=== PATIENT | male | born 1940 | race Caucasian/White ===

== ENCOUNTER → 2017-03-01 | Outpatient (CLI) | payer OTHER ==
[2017-03-01 12:27] LABS: ALT/SGPT 29 U/L (12-78); AST/SGOT 13 U/L (15-37); BLOOD UREA NITROGEN 14 mg/dl (7-18); BUN/CREATININE RATIO 15.5 (10-20); CALCIUM 9.1 mg/dl (8.5-10.1); CARBON DIOXIDE 29 mmol/L (21-32); CHLORIDE 103 mmol/L (98-107); CHOLESTEROL 117 mg/dl (0-200); CREATININE 0.91 mg/dl (0.60-1.40); GLUCOSE 126 mg/dl (70-99); POTASSIUM 4.3 mmol/L (3.5-5.1); SODIUM 138 mmol/L (136-145); TRIGLYCERIDES 95 mg/dl (0-150); VERY LOW DENSITY LIPOPROT CALC 19 mg/dl
[2017-03-01 12:31] LABS: ALB/GLOB RATIO 0.9 (0.9-2); ALKALINE PHOSPHATASE 61 U/L (45-117); CHOLESTEROL/HDL RATIO 3.2; HDL CHOLESTEROL 37 mg/dl; LDL CHOLESTEROL CALCULATED 61 mg/dl
[2017-03-01 13:04] LABS: ESTIMATED AVERAGE GLUCOSE 177 mg/dl; HA1C FLAG Normal (Normal)
== END | disposition home or self-care (01) ==
LOC: C.LABPBG 07:36
PROVIDERS: ATTEND Neuromusculoskeletal Medicine & OMM
DX: Z00.00 Encounter for general adult medical examination without abnormal findings (principal); E11.9 Type 2 diabetes mellitus without complications; Z12.5 Encounter for screening for malignant neoplasm of prostate

== ENCOUNTER → 2017-04-02 | Outpatient (CLI) | payer OTHER | END | disposition home or self-care (01) | LOC: C.LABSPEC 09:21 | PROVIDERS: ATTEND Neuromusculoskeletal Medicine & OMM | DX: R19.7 Diarrhea, unspecified (principal) ==

== ENCOUNTER → 2017-06-28 | Outpatient (CLI) | payer OTHER ==
[2017-06-28 11:56] LABS: BASO % 0.7 %; BASO ABS # 0.05 K/uL (0-0.2); COMPLETE YES; EOS % 7.3 %; IG% 0.1 %; LYMPH % 22.9 %; LYMPH ABS # 1.53 K/uL (1.2-3.4); MEAN CELL VOLUME 91.6 fL (80-100); MEAN CORPUSCULAR HEMOGLOBIN 31.7 pg (25-34); MEAN CORPUSCULAR HGB CONC 34.6 g/dl (32-36); MEAN PLATELET VOLUME 10.1 fL (7.4-10.4); MONO % 8.8 %; NEUT % 60.2 %; PLATELET COUNT 240 K/uL (130-400); RED BLOOD COUNT 4.04 M/uL (4.7-6.1); WHITE BLOOD COUNT 6.68 K/uL (4.8-10.8)
[2017-06-28 12:23] LABS: ALT/SGPT 25 U/L (12-78); AST/SGOT 19 U/L (15-37); BLOOD UREA NITROGEN 13 mg/dl (7-18); BUN/CREATININE RATIO 18.5 (10-20); CARBON DIOXIDE 29 mmol/L (21-32); CHLORIDE 96 mmol/L (98-107); GLUCOSE 104 mg/dl (70-99); POTASSIUM 3.6 mmol/L (3.5-5.1); SODIUM 133 mmol/L (136-145)
[2017-06-28 12:26] LABS: ALB/GLOB RATIO 1.2 (0.9-2); ALKALINE PHOSPHATASE 56 U/L (45-117); ESTIMATED AVERAGE GLUCOSE 140 mg/dl; HA1C FLAG Normal (Normal)
== END | disposition home or self-care (01) ==
LOC: C.LABPBG 08:58
PROVIDERS: ATTEND Family Medicine
DX: I65.23 Occlusion and stenosis of bilateral carotid arteries (principal); D64.9 Anemia, unspecified; E11.9 Type 2 diabetes mellitus without complications; Z98.890 Other specified postprocedural states

== ENCOUNTER → 2017-09-17 | Outpatient (CLI) | payer OTHER ==
[2017-09-17 14:58] LABS: BLOOD UREA NITROGEN 14 mg/dl (7-18); CARBON DIOXIDE 29 mmol/L (21-32); GLUCOSE 113 mg/dl (70-99); POTASSIUM 3.7 mmol/L (3.5-5.1); SODIUM 129 mmol/L (136-145)
[2017-09-17 15:03] LABS: CHOLESTEROL 102 mg/dl (0-200); LDL CHOLESTEROL CALCULATED 43 mg/dl
== END | disposition home or self-care (01) ==
LOC: C.LABPBG 09:05
PROVIDERS: ATTEND Physician Assistant
DX: Z00.00 Encounter for general adult medical examination without abnormal findings (principal); I10 Essential (primary) hypertension; K52.9 Noninfective gastroenteritis and colitis, unspecified; Z86.73 Personal history of transient ischemic attack (TIA), and cerebral infarction without residual deficits

== ENCOUNTER → 2017-09-27 | Day surgery (SDC) | payer OTHER ==
[2017-09-26 09:04] VITALS: Ht 167.6 cm; Wt 74.5 kg
[~2017-09-27] VITALS: Ht 167.6 cm; Wt 74.5 kg
[~2017-09-27] MED LIST: AMLO-114 PO; ASPCH81X PO; ATOR-24 PO; CLOP1TAB15 PO; HYDR12.55 PO; LIDOCAINE HCL 2% 2 ML VIAL (20MG/ML) ONE; METF1TAB53 PO; MULT1CHW18 PO; MULT60CA PO; PROPOFOL IV EMULSION 10 MG/ML 20 ML VIAL IV ONE; SODIUM CHLORIDE 0.9% 500ML 500 ML IV ONE; [UNRECOGNIZED DRUG - CODE] PO
--- NOTE | 2017-09-27 12:04 | Endo History and Physical ---
History & Physical Date of Service: Sep 27, 2017. Chief Complaint: CHRONIC DIARRHEA Referring Physician: DR. LAST History of Present Illness 77 yo CM who presents for colonoscopy secondary to chronic diarrhea. Past Surgical History Hx Cardiac Surgery: Yes (LEFT CAROTID ENDARTERECTOMY) Hx Internal Defibrillator: No Hx Pacemaker: No Hx Abdominal Surgery: Yes (UMBILICAL HERNIA) Hx of Implantable Prosthesis: No Hx Post-Op Nausea and Vomiting: No Hx Cancer Surgery: No Hx Thoracic Surgery: No Hx Orthopedic: No Hx Urinary Tract Surgery: No Family History None Social History Smoking Status: Former Smoker Hx Substance Use: No Hx Alcohol Use: Yes (OCCASIONALLY) Allergies Coded Allergies: NO KNOWN DRUG ALLERGIES (Verified Allergy, Unknown, ., 09/26/17) Current Medications Reported Home Medications Medications Dose Route/Sig Max Daily Dose Days Date Category Norvasc (Amlodipine Besylate) 10 Mg Tab 10 Mg PO QAM 09/26/17 Reported Biotin Gummies (Biotin) 1,000 Mcg Chw 1 Dose PO QAM 09/26/17 Reported Preservision Areds 2 (Multiple Vitamins W/ Minerals) 1 Cap Cap 1 Cap PO QAM 09/26/17 Reported Multivitamin Gummies Adul (Multiple Vitamins W/ Minerals) 1 Chw Chw 1 Dose PO QAM 09/26/17 Reported Aspirin Chewable (Aspirin) 81 Mg Chew 81 Mg PO QPM 09/26/17 Reported Hydrochlorothiazide 12.5 Mg Tab 1 Tab PO QAM 09/26/17 Reported Plavix (Clopidogrel Bisulfate) 75 Mg Tab 75 Mg PO QAM 09/26/17 Reported Glucophage Ext Rel (Metformin Hcl) 1,000 Mg Tab 1,000 Mg PO BID 09/26/17 Reported Lipitor (Atorvastatin Calcium) 40 Mg Tab 40 Mg PO QPM 09/26/17 Reported Vital Signs Weight (Kilograms): 74.55 Height (Feet): 5 Height (Inches): 6 Date Time Temp Pulse Resp B/P (MAP) Pulse Ox O2 Delivery O2 Flow Rate FiO2 09/27/17 11:51 36.6 63 16 151/78 (102) 94 Room Air Physical Exam General Appearance: WD/WN, no apparent distress Respiratory/Chest: Auscultation: breath sounds normal Cardiovascular: Heart Auscultation: RRR Abdomen: Bowel Sounds: normal Inspection & Palpation: soft, non-distended, no tenderness, guarding & rebound Assessment and Plan Assessment: 77 yo CM who presents for colonoscopy secondary to chronic diarrhea. Plan: Proceed with colonoscopy.
--- NOTE | 2017-09-27 13:46 | GI REPORT ---
Procedure Date: 09/27/2017 1:15 PM Procedure: Colonoscopy Indications: Chronic diarrhea Medicines: Monitored Anesthesia Care Complications: No immediate complications. Estimated Blood Loss: Estimated blood loss: none. Procedure: Pre-Anesthesia Assessment: - Prior to the procedure, a History and Physical was performed, and patient medications and allergies were reviewed. The patient's tolerance of previous anesthesia was also reviewed. The risks and benefits of the procedure and the sedation options and risks were discussed with the patient. All questions were answered, and informed consent was obtained. Prior Anticoagulants: The patient last took aspirin 1 day prior to the procedure and last took Plavix (clopidogrel) on the day of the procedure. ASA Grade Assessment: III - A patient with severe systemic disease. After reviewing the risks and benefits, the patient was deemed in satisfactory condition to undergo the procedure. After I obtained informed consent, the scope was passed under direct vision. Throughout the procedure, the patient's blood pressure, pulse, and oxygen saturations were monitored continuously. The scope was introduced through the anus and advanced to the terminal ileum. The colonoscopy was performed without difficulty. The patient tolerated the procedure well. The quality of the bowel preparation was good. The terminal ileum, ileocecal valve, appendiceal orifice, and rectum were photographed. Findings: Multiple small-mouthed diverticula were found in the sigmoid colon. Non-bleeding internal hemorrhoids were found during retroflexion. The hemorrhoids were small. Several random biopsies were obtained with cold forceps for evaluation of microscopic colitis in the entire colon. Fluid aspiration for stool studies was performed in the entire colon. Impression: - Diverticulosis in the sigmoid colon. - Non-bleeding internal hemorrhoids. - Several random biopsies were obtained in the entire colon. - Fluid aspiration was performed. Recommendation: - Resume previous diet. - Continue present medications. - Repeat colonoscopy for surveillance based on pathology results. - Return to primary care physician as previously scheduled. Nirav Newman DO 09/27/2017 1:46:23 PM This report has been signed electronically. Note Initiated On: 09/27/2017 1:15 PM I attest to the content of the Intraoperative Record and orders documented therein, exceptions below
--- NOTE | 2017-09-27 13:52 | Discharge Instructions ---
Endoscopy Patient Instructions Date / Procedure(s) Performed Sep 27, 2017. Colonoscopy Allergy Information Coded Allergies: NO KNOWN DRUG ALLERGIES (Verified Allergy, Unknown, ., 09/26/17) Discharge Date / Findings Sep 27, 2017. Diverticulosis Internal hemorrhoids Random colon biopsies Stool aspirate collected Medication Instructions Stopped Medication(s): ASPIRIN 09/26/17 PLAVIX 09/27/17 OK to resume all medications today as prescribed Reported Home Medications Medications Dose Route/Sig Max Daily Dose Days Date Category Norvasc (Amlodipine Besylate) 10 Mg Tab 10 Mg PO QAM 09/26/17 Reported Biotin Gummies (Biotin) 1,000 Mcg Chw 1 Dose PO QAM 09/26/17 Reported Preservision Areds 2 (Multiple Vitamins W/ Minerals) 1 Cap Cap 1 Cap PO QAM 09/26/17 Reported Multivitamin Gummies Adul (Multiple Vitamins W/ Minerals) 1 Chw Chw 1 Dose PO QAM 09/26/17 Reported Aspirin Chewable (Aspirin) 81 Mg Chew 81 Mg PO QPM 09/26/17 Reported Hydrochlorothiazide 12.5 Mg Tab 1 Tab PO QAM 09/26/17 Reported Plavix (Clopidogrel Bisulfate) 75 Mg Tab 75 Mg PO QAM 09/26/17 Reported Glucophage Ext Rel (Metformin Hcl) 1,000 Mg Tab 1,000 Mg PO BID 09/26/17 Reported Lipitor (Atorvastatin Calcium) 40 Mg Tab 40 Mg PO QPM 09/26/17 Reported Provider Instructions Activity Restrictions - No exercising or heavy lifting for 24 hours. - Do not drink alcohol the day of the procedure. - Do not drive a car or operate machinery until the day after the procedure. - Do not make any important decisions or sign important papers in 24 hours after the procedure. Following Day: - Return to full activity which may include returning to work/school. Diet Start your diet with liquids and light foods (jello, soup, juice, toast). Then eat your usual diet if not nauseated. Treatment For Common After Affects For mild abdominal pain, bloating, or excessive gas: - Rest - Eat lightly - Lie on right side Follow-Up Information Follow-up with DR. LAST as scheduled Anesthesia Information What You Should Know You have had a procedure that required some medicine to reduce anxiety and discomfort. This treatment is called moderate sedation. After receiving the treatment, you may be sleepy, but you will be able to breathe on your own. The effects of the treatment may last for several hours. Follow these instructions along with Activity/Diet recommendations noted above: * Do NOT do anything where dizziness or clumsiness would be dangerous. * Rest quietly at home today, then you can be up and about tomorrow. * Have a responsible person stay with you the rest of today. * You may have had an I.V. today. If so, you may take the dressing off later today. Recommendations Call your doctor if: * Trouble breathing * Continuous vomiting for more than 24 hours * Temperature above 101 degrees * Severe abdominal pain or bloating * Pain not relieved by pain medicine ordered * There is increased drainage or redness from any incision * A large amount of rectal bleeding greater than 2-3 tablespoons. (If you had a polyp/s removed or have hemorrhoids, a small amount of blood - from the rectum is to be expected.) * You have any unanswered questions or concerns. IN THE EVENT OF A SERIOUS EMERGENCY, GO TO THE NEAREST EMERGENCY ROOM Your discharge instructions were prepared by provider Nirav Newman. Patient Instructions Signature Page Dimitri Goss Patient (or Guardian) Signature/Date: I have read and understand the instructions given to me by my caregivers. Caregiver/RN/Doctor Signature/Date: The above-named patient and/or guardian has received patient instructions on this date. + Original Patient Signature Page (only) stays with chart. Please make copy for patient.
[2017-09-27 14:10] VITALS: BP 164/79; PULSE 71; O2SAT 99
--- NOTE | 2017-09-27 14:28 | Anesthesiology Progress Note ---
Anesthesia Post Op Note Date & Time Sep 27, 2017 at 14:28 Vital Signs Pain Intensity: 0 Vital Signs Past 12 Hours Date Time Temp Pulse Resp B/P (MAP) Pulse Ox O2 Delivery O2 Flow Rate FiO2 09/27/17 14:10 71 16 164/79 (107) 99 Room Air 09/27/17 13:55 62 16 146/83 (104) 98 Room Air 09/27/17 13:40 62 16 109/61 (77) 97 Room Air 09/27/17 11:51 36.6 63 16 151/78 (102) 94 Room Air Notes Mental Status: alert / awake / arousable, participated in evaluation Pt Amnestic to Procedure: Yes Nausea / Vomiting: adequately controlled Pain: adequately controlled Airway Patency, RR, SpO2: stable & adequate BP & HR: stable & adequate Hydration State: stable & adequate Anesthetic Complications: no major complications apparent
== END | disposition home or self-care (01) ==
LOC: C.GI 11:19
PROVIDERS: ATTEND Internal Medicine
DX: K52.9 Noninfective gastroenteritis and colitis, unspecified (principal); K57.30 Diverticulosis of large intestine without perforation or abscess without bleeding; K64.8 Other hemorrhoids; I10 Essential (primary) hypertension; Z86.73 Personal history of transient ischemic attack (TIA), and cerebral infarction without residual deficits; E11.9 Type 2 diabetes mellitus without complications; M19.90 Unspecified osteoarthritis, unspecified site; Z98.890 Other specified postprocedural states; Z87.891 Personal history of nicotine dependence; Z79.82 Long term (current) use of aspirin; Z79.02 Long term (current) use of antithrombotics/antiplatelets; Z79.899 Other long term (current) drug therapy; Z98.41 Cataract extraction status, right eye; Z98.42 Cataract extraction status, left eye

== ENCOUNTER → 2017-10-04 | Outpatient (CLI) | payer OTHER ==
[~2017-10-04] MED LIST changes: -LIDOCAINE HCL 2% 2 ML VIAL (20MG/ML) ONE; -PROPOFOL IV EMULSION 10 MG/ML 20 ML VIAL IV ONE; -SODIUM CHLORIDE 0.9% 500ML 500 ML IV ONE
[2017-10-04 17:13] LABS: BLOOD UREA NITROGEN 12 mg/dl (7-18); CALCIUM 9.1 mg/dl (8.5-10.1); CARBON DIOXIDE 31 mmol/L (21-32); CREATININE 0.82 mg/dl (0.60-1.40); GLUCOSE 100 mg/dl (70-99); POTASSIUM 3.3 mmol/L (3.5-5.1); SODIUM 125 mmol/L (136-145)
== END | disposition home or self-care (01) ==
LOC: C.LABPBG 11:10
PROVIDERS: ATTEND Physician Assistant
DX: E87.1 Hypo-osmolality and hyponatremia (principal)

== ENCOUNTER → 2017-10-09 | Outpatient (CLI) | payer OTHER ==
[2017-10-09 17:43] LABS: OSMOLALITY,URINE 571 mOms/kg (500-800)
[2017-10-09 17:46] LABS: SODIUM RANDOM URINE 87 mEq/L
[2017-10-09 17:48] LABS: BLOOD UREA NITROGEN 8 mg/dl (7-18); CALCIUM 9.5 mg/dl (8.5-10.1); CARBON DIOXIDE 28 mmol/L (21-32); CREATININE 0.75 mg/dl (0.60-1.40); GLUCOSE 89 mg/dl (70-99); SODIUM 126 mmol/L (136-145)
[2017-10-09 17:58] LABS: PHOSPHORUS 3.2 mg/dl (2.5-4.9)
== END | disposition home or self-care (01) ==
LOC: C.LABPBG 12:21
PROVIDERS: ATTEND Internal Medicine Nephrology
DX: E87.1 Hypo-osmolality and hyponatremia (principal); I10 Essential (primary) hypertension

== ENCOUNTER → 2017-10-14 | Outpatient (CLI) | payer OTHER ==
[2017-10-14 13:59] LABS: ALBUMIN 3.7 gm/dl (3.4-5.0); BLOOD UREA NITROGEN 13 mg/dl (7-18); CALCIUM 9.1 mg/dl (8.5-10.1); CARBON DIOXIDE 29 mmol/L (21-32); CREATININE 0.84 mg/dl (0.60-1.40); GLUCOSE 201 mg/dl (70-99); PHOSPHORUS 3.3 mg/dl (2.5-4.9); POTASSIUM 4.1 mmol/L (3.5-5.1); SODIUM 133 mmol/L (136-145)
== END | disposition home or self-care (01) ==
LOC: C.LABPBG 09:57
PROVIDERS: ATTEND Internal Medicine Nephrology
DX: E87.1 Hypo-osmolality and hyponatremia (principal); E87.6 Hypokalemia

== ENCOUNTER 2018-03-16 07:38 | Emergency (ER) | payer OTHER ==
[~2018-03-16] VITALS: Ht 167.6 cm; Wt 74.6 kg
[~2018-03-16 07:38] MED LIST changes: -AMLO-114 PO; +AMLO10TA3 PO
[2018-03-16 07:42] VITALS: TEMP 36.5; Ht 167.6 cm; Wt 74.6 kg
[2018-03-16] MEDS ORDERED: ONDANSETRON INJ 2 MG/ML 2 ML VIAL IV STA (08:03)
[2018-03-16] MEDS ORDERED: SODIUM CHLORIDE 0.9% 1000ML 1,000 ML IV STA (08:03)
--- NOTE | 2018-03-16 08:12 | EMERGENCY ROOM VISIT NOTE ---
ED Visit Note First contact with patient: 07:45 CHIEF COMPLAINT: Abdominal/flank pain HISTORY OF PRESENTING ILLNESS: This is a 77-year-old male with past medical history hypertension, hyperlipidemia, CVA, bilateral carotid stenosis with history of carotid endarterectomy who presents to the emergency department with complaint of abdominal and flank pain that started 1-2 weeks ago. Patient states that the pain has been gradual in onset and has become progressively worse, he describes as a constant pressure, currently rates as 8/10. He has associated nausea and vomiting with the pain. Patient was seen at an emergency department in [place] yesterday and had a, he states that they told him he was constipated and told him to take MiraLAX and stool softeners. Patient's states that she has been giving him MiraLAX and stool softeners every few hours since last evening, but his pain has continued to get worse, and he has not moved his bowels. He states his last bowel movement was 3 days ago. Patient does note that he developed low sodium while he was having his period of diarrhea a few weeks ago and his doctor had placed him on sodium tablets, but he states he was taken off of the sodium tablets about a week ago due to his blood pressure being high. He denies any headaches, vision changes, neck pain or stiffness, dizziness, syncope, chest pain, shortness of breath, palpitations, urinary symptoms, or unusual rash. REVIEW OF SYSTEMS: A complete 10 point review of systems was reviewed with the patient with pertinent positives and negatives as per history of present illness. All else were negative. PAST MEDICAL HISTORY: Hypertension, hyperlipidemia, CVA, carotid endarterectomy SOCIAL HISTORY: Lives at home with his . Denies tobacco use. ALLERGIES: Reviewed in chart, see below. PHYSICAL EXAM: CONSTITUTIONAL: Pleasant and cooperative. No acute distress, but appears uncomfortable and in pain. Mildly dehydrated, but otherwise well appearing and well nourished. HEENT: Normocephalic, atraumatic. Pupils equal, round and reactive to light, EOMI. TMs normal. Pharynx normal. Tacky mucous membranes. NECK: Supple, full active range of motion without discomfort. RESPIRATORY: Clear to auscultation bilaterally with no wheezing, crackles, rhonchi or stridor. Equal expansion bilaterally. CARDIOVASCULAR: Regular rate and rhythm with no murmurs, rubs or gallops. Normal peripheral perfusion. No edema. GASTROINTESTINAL: Soft, tender to palpation in the left abdomen flank area, mildly distended. No rebound tenderness or guarding. No palpable masses or HSM. Hypoactive bowel sounds present in all quadrants. No CVA tenderness bilaterally. MUSCULOSKELETAL: Full range of motion of all joints without discomfort. INTEGUMENTARY: No rash or other significant dermatologic conditions noted. NEUROLOGIC: Alert and oriented X 4 with normal affect. Normal strength and sensation in all 4 extremities. No focal neurologic deficits noted. Normal speech. ED COURSE AND MEDICAL DECISION MAKING: CC: Patient presenting with complaint of abdominal/flank pain, constipation DIFFERENTIAL DIAGNOSIS: Includes, but not limited to constipation, obstipation , bowel obstruction, bowel perforation, diverticulitis, gastroparesis, dehydration, electrolyte abnormality, among others. INTERPRETATION OF LABS: No leukocytosis, mild anemia, normal platelets, hyponatremia and hypochloremia, no other significant electrolyte abnormalities, normal renal function. IMAGING: PA CHEST RADIOGRAPH AND UPRIGHT AND SUPINE AP RADIOGRAPHS OF THE ABDOMEN CLINICAL HISTORY: Abdominal pain. Flank pain. Constipation. COMPARISON STUDY: No previous studies for comparison. FINDINGS: Lung volumes are normal. There is no pneumothorax. There is no evidence for pulmonary edema or pneumonia. There are possible trace bilateral pleural effusions. Mild cardiomegaly is noted. There is no free air. Mild small and large bowel gaseous distention is noted. A paucity of gas within the sigmoid colon and rectum is noted. Moderate to large amount of stool within the colon and rectum is noted. IMPRESSION: 1. No free air. 2. Moderate to large amount of stool within the colon and rectum. 3. Mild large and small bowel distention. This may represent an ileus although distal colonic obstruction could appear similar. 4. Possible trace bilateral pleural effusions. ----- CT OF THE ABDOMEN AND PELVIS WITH CONTRAST CLINICAL HISTORY: Left flank pain. Constipation. COMPARISON STUDY: None. TECHNIQUE: Following IV administration of 93 mL of Optiray-320, axial images of the abdomen and pelvis were obtained from the lung bases to the proximal femurs. Images were reviewed in the axial, sagittal, and coronal planes. IV contrast was administered without complication. A dose lowering technique was utilized adhering to the principles of ALARA. Oral contrast was administered. CT DOSE: 426.41 mGy.cm FINDINGS: The heart is mildly enlarged. No pneumatosis, free air or portal venous gas is present. The liver, spleen, adrenal glands, kidneys and pancreas are unremarkable. There is no biliary or pancreatic ductal dilatation. Exam is mildly, must by motion artifact. There is a large amount of poorly formed stool within the colon. There is apparent caliber change at the level the mid descending colon. A definite associated mass is not identified on this examination there is no convincing evidence for a bowel obstruction. There is no evidence for a small bowel obstruction. Extensive aortoiliac atherosclerotic plaque is noted. There is no lymphadenopathy. Prostate is moderately enlarged. Bladder is moderately distended. No ascites is present. No suspicious osseous lesion is noted. IMPRESSION: 1. Large amount of poorly formed stool within the colon. No definite evidence for bowel obstruction. Equivocal caliber change at the level of the mid descending colon without corresponding lesion by CT. A mucosal lesion is considered unlikely however a follow-up nonemergent colonoscopy is recommended. 2. Moderate distention of the bladder. 3. Prostate enlargement. EKG: Shows normal sinus rhythm with a rate of 76 bpm, no acute ST or T-wave changes, no ectopy by my interpretation. No previous EKGs available for comparison. MEDICATION RECONCILIATION: I attest that I have personally reviewed the patient 's current medication list. INITIAL VITAL SIGNS REVIEW: I reviewed the patient's initial vital signs and interpret them as follows: T: Afebrile; BP: Hypertensive; HR: Within normal limits; RR: Within normal limits; Pulse Ox: Within normal limits on room air. Blood pressure screening: The patient was found to have an elevated blood pressure and was referred to their primary doctor for recheck and further treatment. SUMMARY: Patient was evaluated at bedside, history and physical exam performed. Patient is alert and oriented, in no acute distress, but does appear uncomfortable. Abdomen is tender to palpation of the left side, mildly distended, but with active bowel sounds. No acute abdomen. Orders were placed at bedside for labs, IV fluid bolus for hydration as a precaution, IV fentanyl and PO Tylenol for pain, IV Zofran for nausea, acute abdominal series and CT abdomen/pelvis to evaluate for bowel obstruction/ perforation versus constipation. Patient discussed with Dr. Pierre, who agrees with my assessment and plan. Labs and imaging reviewed as above, notable for hyponatremia on labs. CT of the abdomen demonstrates moderate to severe constipation with no evidence of bowel obstruction. Patient was given a fleets enema per his request to help manage his constipation. Patient states that he developed hyponatremia several weeks ago when he had his episode of diarrhea and was taking sodium tablets, however these were stopped a week ago. I spoke with Dr. Bonilla, [facility] hospitalist, who agrees to evaluate the patient for admission. Patient was given additional IV fluids and his sodium level was rechecked, which remained stable. The patient also had a large bowel movement, after which he reported great improvement in his abdominal/flank pain. Dr. Bonilla felt the patient was reasonable for discharge, as he has close PCP follow-up tomorrow. Patient was also comfortable with this plan. Patient reassessed multiple times throughout ED stay, he has remained stable, though his blood pressure has been fluctuating and remains on the high side. Patient states this is not unusual for him. He was encouraged to take his blood pressure medication when he gets home. Patient was updated on all results and plan for discharge, the patient and his family members were agreeable to this plan. 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 Patient was also given strict return precautions should his symptoms worsen, he verbalized understanding. Patient was discharged home in stable condition and ambulatory. Current/Historical Medications Scheduled Amlodipine (Norvasc), 10 MG PO QAM Aspirin (Aspirin Chewable), 81 MG PO QPM Atorvastatin (Lipitor), 40 MG PO QPM Biotin (Biotin Gummies), 1 DOSE PO QAM Clopidogrel (Plavix), 75 MG PO QAM Glipizide (Glipizide Er), 1 TAB PO BID Multiple Vitamins W/ Minerals (Multivitamin Gummies Adul), 1 DOSE PO QAM Multiple Vitamins W/ Minerals (Preservision Areds 2), 1 CAP PO QAM Sodium Chloride (Sodium Chloride), 1 TAB PO DAILY Allergies Coded Allergies: Lisinopril (Unverified Allergy, Unknown, COUGH, 03/16/18) NO KNOWN DRUG ALLERGIES (Verified Allergy, Unknown, ., 09/26/17) Vital Signs Date Time Temp Pulse Resp B/P (MAP) Pulse Ox O2 Delivery O2 Flow Rate FiO2 03/16/18 15:34 82 18 160/72 97 03/16/18 14:46 170/91 03/16/18 14:41 90 18 03/16/18 14:31 172/92 03/16/18 14:16 174/97 03/16/18 14:11 86 22 03/16/18 14:06 90 16 03/16/18 14:01 193/102 97 Room Air 03/16/18 13:46 175/99 03/16/18 13:36 94 26 03/16/18 13:31 94 22 03/16/18 13:26 89 18 03/16/18 13:16 95 18 169/100 03/16/18 13:01 90 20 180/105 03/16/18 12:56 193/106 03/16/18 12:46 87 23 03/16/18 12:31 85 13 197/103 03/16/18 12:26 194/105 03/16/18 11:38 90 16 03/16/18 11:33 85 20 187/99 98 Room Air 03/16/18 11:28 92 32 03/16/18 11:01 194/106 03/16/18 10:58 85 18 03/16/18 10:51 193/106 03/16/18 10:45 232/140 03/16/18 10:43 83 21 03/16/18 10:31 214/114 03/16/18 10:28 84 13 03/16/18 10:22 212/112 03/16/18 10:21 86 18 225/122 98 Room Air 03/16/18 10:21 225/122 03/16/18 10:13 84 17 03/16/18 09:58 86 16 03/16/18 09:43 81 19 03/16/18 09:38 81 17 03/16/18 08:57 84 03/16/18 07:42 36.5 87 18 159/96 97 Room Air Laboratory Results 03/16/18 08:35 Red Blood Count 4.38, Mean Corpuscular Volume 90.2, Mean Corpuscular Hemoglobin 31.3, Mean Corpuscular Hemoglobin Concent 34.7, Mean Platelet Volume 9.5, Neutrophils (%) (Auto) 73.6, Lymphocytes (%) (Auto) 11.0, Monocytes (%) (Auto) 11.5, Eosinophils (%) (Auto) 3.3, Basophils (%) (Auto) 0.4, Neutrophils # (Auto ) 6.23, Lymphocytes # (Auto) 0.93, Monocytes # (Auto) 0.97, Eosinophils # (Auto ) 0.28, Basophils # (Auto) 0.03 03/16/18 13:48 Test 03/16/18 08:35 03/16/18 09:30 03/16/18 13:48 White Blood Count 8.46 K/uL (4.8-10.8) Red Blood Count 4.38 M/uL (4.7-6.1) Hemoglobin 13.7 g/dL (14.0-18.0) Hematocrit 39.5 % (42-52) Mean Corpuscular Volume 90.2 fL (80-100) Mean Corpuscular Hemoglobin 31.3 pg (25-34) Mean Corpuscular Hemoglobin Concent 34.7 g/dl (32-36) Platelet Count 229 K/uL (130-400) Mean Platelet Volume 9.5 fL (7.4-10.4) Neutrophils (%) (Auto) 73.6 % Lymphocytes (%) (Auto) 11.0 % Monocytes (%) (Auto) 11.5 % Eosinophils (%) (Auto) 3.3 % Basophils (%) (Auto) 0.4 % Neutrophils # (Auto) 6.23 K/uL (1.4-6.5) Lymphocytes # (Auto) 0.93 K/uL (1.2-3.4) Monocytes # (Auto) 0.97 K/uL (0.11-0.59) Eosinophils # (Auto) 0.28 K/uL (0-0.5) Basophils # (Auto) 0.03 K/uL (0-0.2) RDW Standard Deviation 42.4 fL (36.4-46.3) RDW Coefficient of Variation 12.9 % (11.5-14.5) Immature Granulocyte % (Auto) 0.2 % Immature Granulocyte # (Auto) 0.02 K/uL (0.00-0.02) Total Bilirubin 0.9 mg/dl (0.2-1) Direct Bilirubin 0.3 mg/dl (0-0.2) Aspartate Amino Transf (AST/SGOT) 15 U/L (15-37) Alanine Aminotransferase (ALT/SGPT) 20 U/L (12-78) Alkaline Phosphatase 73 U/L (45-117) Troponin I < 0.015 ng/ml (0-0.045) Total Protein 7.9 gm/dl (6.4-8.2) Albumin 4.2 gm/dl (3.4-5.0) Lipase 46 U/L (73-393) Urine Color YELLOW Urine Appearance CLEAR (CLEAR) Urine pH 6.5 (4.5-7.5) Urine Specific [place] 1.015 (1.000-1.030) Urine Protein NEG (NEG) Urine Glucose (UA) NEG (NEG) Urine Ketones NEG (NEG) Urine Occult Blood NEG (NEG) Urine Nitrite NEG (NEG) Urine Bilirubin NEG (NEG) Urine Urobilinogen NEG (NEG) Urine Leukocyte Esterase NEG (NEG) Anion Gap 10.0 mmol/L (3-11) Est Creatinine Clear Calc Drug Dose 78.4 ml/min Estimated GFR () 104.8 Estimated GFR (Non- 90.4 BUN/Creatinine Ratio 16.4 (10-20) Calcium Level 8.9 mg/dl (8.5-10.1) Medications Administered Medications (Trade) Dose Ordered Sig/Landry Route Start Time Stop Time Status Last Admin Dose Admin Sodium Chloride 1,000 ml @ 500 mls/hr Q2H STAT IV 03/16/18 08:03 03/16/18 10:02 DC 03/16/18 08:35 500 MLS/HR Ondansetron HCl (Zofran Inj) 4 mg NOW STAT IV 03/16/18 08:03 03/16/18 08:08 DC 03/16/18 08:35 4 MG Fentanyl Citrate (Fentanyl Inj) 50 mcg NOW STAT IV 03/16/18 10:07 03/16/18 10:09 DC 03/16/18 10:19 50 MCG Acetaminophen (Tylenol Tab) 650 mg NOW STAT PO 03/16/18 10:07 03/16/18 10:09 DC 03/16/18 10:19 650 MG Miscellaneous Medication (Milk And Molasses Enema) 1 ea ONE STAT HI 03/16/18 10:53 03/16/18 11:08 DC 03/16/18 11:00 1 EA Sodium Biphosphate/ Sodium Phosphate (Fleet Enema) 132 ml NOW STAT HI 03/16/18 11:22 03/16/18 11:25 DC 03/16/18 11:25 132 ML Hydralazine HCl (HydrALAZINE INJ) 20 mg STK-MED ONCE .ROUTE 03/16/18 12:51 03/16/18 12:52 DC 03/16/18 12:54 5 MG Departure Information Impression Primary Impression: Constipation Additional Impression: Hyponatremia Dispostion Home / Self-Care Condition GOOD Referrals Celina Castillo DO (PCP) Patient Instructions ED Constipation, ED Hyponatremia, [facility] Additional Instructions You have been evaluated and treated in the Emergency Department today for your abdominal pain. Laboratory results and imaging studies have ruled out any emergent causes for your symptoms which would warrant admission or surgery. CT imaging today showed moderate to severe constipation. This may have been partially relieved by the enemas today, but you should continue taking the MiraLAX and stool softener once a day until you are moving your bowels normally again. For pain control, you can use the following [id number] medicines (if >12 yo): - Regular strength (325mg/tab) Tylenol (acetaminophen) 2 tabs every 4-6 hours as needed. Do not exceed 10 tablets in a 24 hour period. Avoid taking more than 3000 mg of Tylenol per day. This includes any other sources of acetaminophen you may take on a regular basis. - Regular strength (200 mg/tab) Advil (ibuprofen) 3 tabs every 6-8 hours as needed. Do not exceed a dose of 2400 mg per day. Drink plenty of fluids to stay well hydrated. Please keep your follow-up appointments with your primary care provider and your micrographics services supervisor this week. You should also have your blood pressure reassessed, as it has been high today. Return to the emergency department for severe worsening abdominal or back pain, worsening nausea/vomiting, vomiting blood, blood in your stool or urine, fevers > 101.5, severe dizziness or passing out, or any other concerns. Problem Qualifiers Primary Impression: Constipation Constipation type: unspecified constipation type Qualified Codes: K59.00 - Constipation, unspecified
[2018-03-16] MEDS ORDERED: GLIP-197 PO (08:22)
[2018-03-16] MEDS ORDERED: SODI1TAB PO (08:22)
[2018-03-16] MEDS ORDERED: OPTIRAY 320 IV PRN (08:30)
[2018-03-16 08:56] LABS: BASO % 0.4 %; BASO ABS # 0.03 K/uL (0-0.2); EOS % 3.3 %; EOS ABS # 0.28 K/uL (0-0.5); HEMATOCRIT 39.5 % (42-52); HEMOGLOBIN 13.7 g/dL (14.0-18.0); IG# 0.02 K/uL (0.00-0.02); LYMPH ABS # 0.93 K/uL (1.2-3.4); MEAN CELL VOLUME 90.2 fL (80-100); MEAN CORPUSCULAR HEMOGLOBIN 31.3 pg (25-34); MEAN CORPUSCULAR HGB CONC 34.7 g/dl (32-36); MEAN PLATELET VOLUME 9.5 fL (7.4-10.4); MONO % 11.5 %; MONO ABS # 0.97 K/uL (0.11-0.59); NEUT % 73.6 %; NEUT ABS # 6.23 K/uL (1.4-6.5); PLATELET COUNT 229 K/uL (130-400); RED CELL DISTRIBUTION WIDTH CV 12.9 % (11.5-14.5); RED CELL DISTRIBUTION WIDTH SD 42.4 fL (36.4-46.3); WHITE BLOOD COUNT 8.46 K/uL (4.8-10.8)
[2018-03-16 09:07] LABS: ALBUMIN 4.2 gm/dl (3.4-5.0); ALT/SGPT 20 U/L (12-78); AST/SGOT 15 U/L (15-37); BLOOD UREA NITROGEN 15 mg/dl (7-18); CALCIUM 8.9 mg/dl (8.5-10.1); CARBON DIOXIDE 27 mmol/L (21-32); CREATININE 0.89 mg/dl (0.60-1.40); GLUCOSE 153 mg/dl (70-99); LIPASE 46 U/L (73-393); POTASSIUM 4.5 mmol/L (3.5-5.1); SODIUM 125 mmol/L (136-145)
[2018-03-16 09:12] LABS: ALKALINE PHOSPHATASE 73 U/L (45-117); TOTAL PROTEIN 7.9 gm/dl (6.4-8.2)
--- NOTE | 2018-03-16 09:29 | DIAGNOSTIC IMAGING REPORT ---
PA CHEST RADIOGRAPH AND UPRIGHT AND SUPINE AP RADIOGRAPHS OF THE ABDOMEN CLINICAL HISTORY: Abdominal pain. Flank pain. Constipation. COMPARISON STUDY: No previous studies for comparison. FINDINGS: Lung volumes are normal. There is no pneumothorax. There is no evidence for pulmonary edema or pneumonia. There are possible trace bilateral pleural effusions. Mild cardiomegaly is noted. There is no free air. Mild small and large bowel gaseous distention is noted. A paucity of gas within the sigmoid colon and rectum is noted. Moderate to large amount of stool within the colon and rectum is noted. IMPRESSION: 1. No free air. 2. Moderate to large amount of stool within the colon and rectum. 3. Mild large and small bowel distention. This may represent an ileus although distal colonic obstruction could appear similar. 4. Possible trace bilateral pleural effusions. Electronically signed by: Rito Ha M.D. 03/16/2018 9:27 AM Dictated Date/Time: 03/16/2018 9:25 AM
--- NOTE | 2018-03-16 09:49 | EMERGENCY ROOM VISIT NOTE ---
ED Visit Note First contact with patient: 07:45 The patient was seen and examined with Shanthi DUNN. I agree with the history, physical and findings. Please see the note for disposition and details.
--- NOTE | 2018-03-16 09:58 | DIAGNOSTIC IMAGING REPORT ---
CT OF THE ABDOMEN AND PELVIS WITH CONTRAST CLINICAL HISTORY: Left flank pain. Constipation. COMPARISON STUDY: None. TECHNIQUE: Following IV administration of 93 mL of Optiray-320, axial images of the abdomen and pelvis were obtained from the lung bases to the proximal femurs. Images were reviewed in the axial, sagittal, and coronal planes. IV contrast was administered without complication. A dose lowering technique was utilized adhering to the principles of ALARA. Oral contrast was administered. CT DOSE: 426.41 mGy.cm FINDINGS: The heart is mildly enlarged. No pneumatosis, free air or portal venous gas is present. The liver, spleen, adrenal glands, kidneys and pancreas are unremarkable. There is no biliary or pancreatic ductal dilatation. Exam is mildly, must by motion artifact. There is a large amount of poorly formed stool within the colon. There is apparent caliber change at the level the mid descending colon. A definite associated mass is not identified on this examination there is no convincing evidence for a bowel obstruction. There is no evidence for a small bowel obstruction. Extensive aortoiliac atherosclerotic plaque is noted. There is no lymphadenopathy. Prostate is moderately enlarged. Bladder is moderately distended. No ascites is present. No suspicious osseous lesion is noted. IMPRESSION: 1. Large amount of poorly formed stool within the colon. No definite evidence for bowel obstruction. Equivocal caliber change at the level of the mid descending colon without corresponding lesion by CT. A mucosal lesion is considered unlikely however a follow-up nonemergent colonoscopy is recommended. 2. Moderate distention of the bladder. 3. Prostate enlargement. Electronically signed by: Rito Ha M.D. 03/16/2018 9:57 AM Dictated Date/Time: 03/16/2018 9:47 AM
[2018-03-16] MEDS ORDERED: FENTANYL CITRATE INJ 50 MCG/1 ML 2 ML VIAL IV STA (10:07)
[2018-03-16] MEDS ORDERED: ACETAMINOPHEN 325 MG TAB PO STA (10:07)
[2018-03-16] MEDS ORDERED: MILK AND MOLASSES ENEMA PR STA (10:53)
[2018-03-16] MEDS ORDERED: SODIUM CHLORIDE 0.9% 1000ML 1,000 ML IV SCH (11:00)
[2018-03-16] MEDS ORDERED: SOD PHOSPHATE/SOD BIPHOSPHATE ENEMA 132 ML BTL PR STA (11:22)
[2018-03-16] MEDS ORDERED: HydrALAZINE HCL 20 MG/ML VIAL ONE (12:51)
[2018-03-16] MEDS ORDERED: HydrALAZINE HCL 20 MG/ML VIAL IV. SCH (13:00)
--- NOTE | 2018-03-16 13:14 | Medical Consult ---
Consultation Date of Consultation: Mar 16, 2018. Attending Physician: History of Present Illness 77 y/o M Hx HTN, HLD, DM II, chronic hyponatremia, BL carotid stenosis. Presents with abdominal and L flank pain in addition to constipation. The pt normally suffers from diarrhea and had been constipated the last few days. He had been to an urgent care center and was given Miralax which had not had the desired effect. He presented to the ER primarily due to constipation. Family reports that he also had an elevated BP this AM and that he has been having hiccups for [address] of the abdomen demonstrated constipation. Initial labs demonstrated hyponatremia. 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 CT abdomen: 1. Large amount of poorly formed stool within the colon. No definite evidence for bowel obstruction. Equivocal caliber change at the level of the mid- descending colon without corresponding lesion by CT. A mucosal lesion is considered unlikely however a follow-up nonemergent colonoscopy is recommended. 2. Moderate distention of the bladder. 3. Prostate enlargement. Past Medical/Surgical History 1) HTN 2) HLD 3) DM II 4) Hyponatremia - recent chronic - thought due to chronic diarrhea 5) BL carotid stenosis 6) History of CVA Social History Does not smoke or drink - lives with family Smoking Status: Never Smoker Allergies Coded Allergies: Lisinopril (Unverified Allergy, Unknown, COUGH, 03/16/18) NO KNOWN DRUG ALLERGIES (Verified Allergy, Unknown, ., 09/26/17) Current Inpatient Medications Current Inpatient Medications Medications (Trade) Dose Ordered Sig/Landry Route Start Time Stop Time Status Last Admin Dose Admin Ioversol (Optiray 320) 100 ml UD PRN IV 03/16/18 08:30 03/20/18 08:29 Sodium Chloride 1,000 ml @ 200 mls/hr Q5H IV 03/16/18 11:00 04/15/18 10:59 UNV Review of Systems Constitutional: No fever, No chills, No sweats Eyes: No worsening of vision ENT: No hearing loss, No unusual epistaxis, No nasal symptoms Respiratory: No cough, No sputum, No wheezing Cardiovascular: No chest pain, No orthopnea, No PND Abdomen: + pain, + nausea, + constipation Musculoskeletal: No joint pain Genitourinary - Male: No hematuria, No dysuria Neurologic: No memory loss, No paralysis, No weakness Psychiatric: No depression symptoms Endocrine: No fatigue Hematologic / Lymphatic: No abnormal bleeding/bruising Integumentary: No rash Physical Exam Date Time Temp Pulse Resp B/P (MAP) Pulse Ox O2 Delivery O2 Flow Rate FiO2 03/16/18 12:26 194/105 03/16/18 11:38 90 16 03/16/18 11:33 85 20 187/99 98 Room Air 03/16/18 11:28 92 32 03/16/18 11:01 194/106 03/16/18 10:58 85 18 03/16/18 10:51 193/106 03/16/18 10:45 232/140 03/16/18 10:43 83 21 03/16/18 10:31 214/114 03/16/18 10:28 84 13 03/16/18 10:22 212/112 03/16/18 10:21 86 18 225/122 98 Room Air 03/16/18 10:21 225/122 03/16/18 10:13 84 17 03/16/18 09:58 86 16 03/16/18 09:43 81 19 03/16/18 09:38 81 17 03/16/18 08:57 84 03/16/18 07:42 36.5 87 18 159/96 97 Room Air General Appearance: WD/WN, no apparent distress, + pertinent finding ( Overweight, elderly male, hiccuping noted - no distress) Head: normocephalic Eyes: normal inspection Neck: supple, no JVD Respiratory/Chest: chest non-tender, lungs clear, normal breath sounds Cardiovascular: regular rate, rhythm, no edema Abdomen/GI: normal bowel sounds, non tender, soft Extremities/Musculoskelatal: no calf tenderness, normal capillary refill, + pertinent finding (minimal edema) 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/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: central 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 II-XII nml as tested, no motor/sensory deficits Skin: normal color, warm/dry Laboratory Results Last 24 Hours Test 03/16/18 08:35 03/16/18 09:30 03/16/18 12:00 White Blood Count 8.46 K/uL Red Blood Count 4.38 M/uL Hemoglobin 13.7 g/dL Hematocrit 39.5 % Mean Corpuscular Volume 90.2 fL Mean Corpuscular Hemoglobin 31.3 pg Mean Corpuscular Hemoglobin Concent 34.7 g/dl Platelet Count 229 K/uL Mean Platelet Volume 9.5 fL Neutrophils (%) (Auto) 73.6 % Lymphocytes (%) (Auto) 11.0 % Monocytes (%) (Auto) 11.5 % Eosinophils (%) (Auto) 3.3 % Basophils (%) (Auto) 0.4 % Neutrophils # (Auto) 6.23 K/uL Lymphocytes # (Auto) 0.93 K/uL Monocytes # (Auto) 0.97 K/uL Eosinophils # (Auto) 0.28 K/uL Basophils # (Auto) 0.03 K/uL RDW Standard Deviation 42.4 fL RDW Coefficient of Variation 12.9 % Immature Granulocyte % (Auto) 0.2 % Immature Granulocyte # (Auto) 0.02 K/uL Sodium Level 125 mmol/L Potassium Level 4.5 mmol/L Chloride Level 90 mmol/L Carbon Dioxide Level 27 mmol/L Anion Gap 8.0 mmol/L Blood Urea Nitrogen 15 mg/dl Creatinine 0.89 mg/dl Est Creatinine Clear Calc Drug Dose 61.7 ml/min Estimated GFR () 94.9 Estimated GFR (Non- 81.9 BUN/Creatinine Ratio 16.6 Random Glucose 153 mg/dl Calcium Level 8.9 mg/dl Total Bilirubin 0.9 mg/dl Direct Bilirubin 0.3 mg/dl Aspartate Amino Transf (AST/SGOT) 15 U/L Alanine Aminotransferase (ALT/SGPT) 20 U/L Alkaline Phosphatase 73 U/L Troponin I < 0.015 ng/ml Total Protein 7.9 gm/dl Albumin 4.2 gm/dl Lipase 46 U/L Urine Color YELLOW Urine Appearance CLEAR Urine pH 6.5 Urine Specific Humphreys 1.015 Urine Protein NEG Urine Glucose (UA) NEG Urine Ketones NEG Urine Occult Blood NEG Urine Nitrite NEG Urine Bilirubin NEG Urine Urobilinogen NEG Urine Leukocyte Esterase NEG Assessment & Plan 77 y/o M Hx HTN, HLD, DM II, chronic hyponatremia, BL carotid stenosis. Presents with abdominal and L flank pain in addition to constipation. The pt normally suffers from diarrhea and had been constipated the last few days. He had been to an urgent care center and was given Miralax which had not had the desired effect. He presented to the ER primarily due to constipation. Family reports that he also had an elevated BP this AM and that he has been having hiccups for [address] of the abdomen demonstrated constipation. Initial labs demonstrated hyponatremia. 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 1) Constipation and abdominal pain. Improved with administration of an enema in the ER. It is recommended that he pursue a nonurgent colonoscopy due to equivocal findings of a caliber change at the level of the mid-descending colon without evidence of mass. 2) Hyponatremia - IVF provided - repeat BMP pending. The pt has an appt with his data conversion operator in 2 days and can f/u reg further adjustments of sodium tablet dosing. 3) HTN - provided with Hydralazine in ER as SBP was as high as 190. He is not having related symptoms. His logs his BPs and this can be brought to the attention of his MD as he has an appt the following day. 4) HLD - cont statin tx 5) DM - cont oral meds as prescribed 6) BL carotid stenosis - post R CEA - scheduled for appt with vascular surgery in 4 days reg R stenosis. Cont PLavix, ASA, Statin 7) Hiccups - may be related to constipation - f/u with PCP if persists. Total time for this consult including review of labs, meds, imaging, records - discussion with pt, family and ER attending - 38 min
[2018-03-16 14:13] LABS: CALCIUM 8.9 mg/dl (8.5-10.1); CREATININE 0.7 mg/dl (0.60-1.40); POTASSIUM 4.2 mmol/L (3.5-5.1)
[2018-03-16 15:34] VITALS: BP 160/72; PULSE 82; O2SAT 97
== END 2018-03-16 15:34 | disposition home or self-care (01) ==
LOC: C.EDB 07:40
DX: K59.00 Constipation, unspecified (principal); E87.1 Hypo-osmolality and hyponatremia; R10.9 Unspecified abdominal pain; Z79.899 Other long term (current) drug therapy; Z88.8 Allergy status to other drugs, medicaments and biological substances; N40.0 Benign prostatic hyperplasia without lower urinary tract symptoms

== ENCOUNTER → 2018-03-17 | Outpatient (CLI) | payer OTHER ==
[~2018-03-17] MED LIST changes: +GLIP-197 PO; -HYDR12.55 PO; -METF1TAB53 PO; +SODI1TAB PO
[2018-03-17 14:15] LABS: ALBUMIN 3.7 gm/dl (3.4-5.0); BLOOD UREA NITROGEN 12 mg/dl (7-18); CALCIUM 8.7 mg/dl (8.5-10.1); CARBON DIOXIDE 25 mmol/L (21-32); CREATININE 0.89 mg/dl (0.60-1.40); GLUCOSE 182 mg/dl (70-99); PHOSPHORUS 3.4 mg/dl (2.5-4.9); POTASSIUM 4.4 mmol/L (3.5-5.1); SODIUM 124 mmol/L (136-145)
== END | disposition home or self-care (01) ==
LOC: C.LABPBG 09:22
PROVIDERS: ATTEND Family Medicine
DX: E87.6 Hypokalemia (principal)

== ENCOUNTER 2018-03-18 00:27 | Inpatient (IN) | payer OTHER ==
[~2018-03-18] VITALS: Ht 167.6 cm; Wt 72.0 kg
[2018-03-18] VITALS (8 sets, daily range): BP systolic 138–184; BP diastolic 73–101; PULSE 98–105; TEMP 36.6–36.9; O2SAT 95–97; Ht 167.6 cm; Wt 72.0 kg
--- NOTE | 2018-03-18 00:59 | EMERGENCY ROOM VISIT NOTE ---
History Report prepared by Steff: Vladimir Hallman Under the Supervision of: Dr. Karla Mars D.O. First contact with patient: 00:36 Chief Complaint: CONSTIPATION Stated Complaint: FLANK PAIN,CONSTIPATION,ELEVATED BLOOD PRESSURE History of Present Illness The patient is a 77 year old male who presents to the Emergency Room with complaints of constant constipation and worsening abdominal pain that he has been dealing with since , 4 days ago. The patient and his at bedside note that they traveled to [place] on and went to the Emergency Department on Saturday morning at 0200. They had a CT scan and were told that he had a large stool burden. He started drinking Prune Juice and MiraLAX after discharge from the hospital on Saturday, 3 days ago. The patient did vomit on the way home from [place]. He then came into the Emergency Department here on Saturday, 2 days ago. He was given an Enema. The patient notes that since the enema he has passed some stool that looked like "a few grains of rice." The patient adds that he came to the department today do to the severe and worsening pain in his abdomen. He describes the pain as intermittently sharp. The patient's was also concerned of elevated blood pressures throughout the day today. The patient denies any history of constipation issues. The patient has a history of hypertension, hyperlipidemia, CVA, bilateral carotid stenosis, and periumbilical hernia repair. Source of History: patient Onset: 4 days ago Position: abdomen Symptom Intensity: severe Quality: sharp Timing: intermittent Associated Symptoms: + vomiting Note: Constipation Review of Systems See HPI for pertinent positives & negatives. A total of 10 systems reviewed and were otherwise negative. Past Medical & Surgical hypertension, hyperlipidemia, CVA, bilateral carotid stenosis, and periumbilical hernia repair Family History Omitted secondary to advanced patient age. Social History Smoking Status: Never Smoker Drug Use: none Marital Status: Housing Status: lives with significant other Occupation Status: retired Current/Historical Medications Scheduled Amlodipine (Norvasc), 10 MG PO QAM Aspirin (Aspirin Chewable), 81 MG PO QPM Atorvastatin (Lipitor), 40 MG PO QPM Biotin (Biotin Gummies), 1 DOSE PO QAM Clopidogrel (Plavix), 75 MG PO QAM Glipizide (Glipizide Er), 1 TAB PO BID Multiple Vitamins W/ Minerals (Multivitamin Gummies Adul), 1 DOSE PO QAM Multiple Vitamins W/ Minerals (Preservision Areds 2), 1 CAP PO QAM Sodium Chloride (Sodium Chloride), 1 TAB PO DAILY Allergies Coded Allergies: Lisinopril (Unverified Adverse Reaction, Unknown, COUGH, 03/18/18) Physical Exam Vital Signs Date Time Temp Pulse Resp B/P (MAP) Pulse Ox O2 Delivery O2 Flow Rate FiO2 03/18/18 04:55 77 18 172/92 97 Room Air 03/18/18 03:32 78 18 207/113 98 Room Air 03/18/18 02:42 88 20 170/85 98 Room Air 03/18/18 01:45 97 20 204/110 95 Room Air 03/18/18 00:31 36.5 98 18 197/92 98 Room Air Physical Exam HEENT: Head - normocephalic and atraumatic Pupils are equal, round, and reactive to light. Extraocular eye muscles are intact, and sclera are anicteric. Nose - moist nasal mucosa without discharge. Mouth - moist buccal mucosa. Oropharynx is nonerythematous and there is no tonsillar exudate or edema noted. Neck: Supple; no JVD, nuchal rigidity, cervical lymphadenopathy. Heart: Regular rate and rhythm. There is a normal S1 and S2 with no murmurs, clicks, or gallops appreciated. Lungs: Clear to auscultation bilaterally with no wheezes, rales, or rhonchi. Abdomen: Moderate distention is present. There is tenderness to palpation of the left lower quadrant. There is tympani to percussion. There are no palpable pulsatile masses or hepatosplenomegaly. There is no guarding, rigidity , or rebound noted. Extremities: No evidence of cyanosis, clubbing, or edema. There are easily palpable peripheral pulses. Skin: warm and dry with good turgor and no rashes. Medical Decision & Procedures ER Provider Diagnostic Interpretation: Radiology results as stated below per my review: CHEST/ABDOMEN X-RAY: Some stool within the ascending and descending colon. There is no obvious air fluid levels or signs of obstruction. Findings are consistent with ileus vs. constipation. Laboratory Results 03/18/18 01:10 03/18/18 01:10 Test 03/18/18 01:10 Red Blood Count 4.28 M/uL (4.7-6.1) Mean Corpuscular Volume 89.0 fL (80-100) Mean Corpuscular Hemoglobin 31.1 pg (25-34) Mean Corpuscular Hemoglobin Concent 34.9 g/dl (32-36) RDW Standard Deviation 41.2 fL (36.4-46.3) RDW Coefficient of Variation 12.8 % (11.5-14.5) Mean Platelet Volume 9.5 fL (7.4-10.4) Anion Gap 10.0 mmol/L (3-11) Est Creatinine Clear Calc Drug Dose 63.8 ml/min Estimated GFR () 96.3 Estimated GFR (Non- 83.1 BUN/Creatinine Ratio 15.2 (10-20) Osmolality 265 mOsm/kg (280-300) Calcium Level 8.7 mg/dl (8.5-10.1) Magnesium Level 2.3 mg/dl (1.8-2.4) Total Bilirubin 0.5 mg/dl (0.2-1) Direct Bilirubin 0.2 mg/dl (0-0.2) Aspartate Amino Transf (AST/SGOT) 18 U/L (15-37) Alanine Aminotransferase (ALT/SGPT) 26 U/L (12-78) Alkaline Phosphatase 83 U/L (45-117) Total Protein 7.9 gm/dl (6.4-8.2) Albumin 4.2 gm/dl (3.4-5.0) Laboratory results per my review. Medications Administered Medications (Trade) Dose Ordered Sig/Landry Route Start Time Stop Time Status Last Admin Dose Admin Sodium Chloride 1,000 ml @ 999 mls/hr Q1H1M STAT IV 03/18/18 01:04 03/18/18 02:04 DC 03/18/18 01:04 999 MLS/HR Fentanyl Citrate (Fentanyl Inj) 50 mcg NOW STAT IV 03/18/18 01:04 03/18/18 01:06 DC 03/18/18 01:04 50 MCG Hydralazine HCl (HydrALAZINE INJ) 10 mg NOW STAT IV. 03/18/18 01:57 03/18/18 01:59 DC 03/18/18 01:57 10 MG Ketorolac Tromethamine (Toradol Inj) 30 mg NOW STAT IV 03/18/18 02:10 03/18/18 02:11 DC 03/18/18 02:40 30 MG Sodium Chloride 1,000 ml @ 250 mls/hr Q4H STAT IV 03/18/18 03:38 03/18/18 07:37 03/18/18 03:38 250 MLS/HR Fentanyl Citrate (Fentanyl Inj) 50 mcg NOW STAT IV 03/18/18 03:38 03/18/18 03:39 DC 03/18/18 03:44 50 MCG Procedure Medications Ordered: Fentanyl, Sodium Chloride, Hydralazine, Toradol. Fentanyl; saline drip ED Course 0040: Past medical records reviewed. The patient was evaluated in room B4B. A complete history and physical exam was performed. An IV lock was initiated and labs are drawn as above. 0104: Ordered Fentanyl 50 mcg IV, Sodium Chloride 1000 mL @ 999 mL/hr IV. He had an obstruction series as described above. 0157: The patient's blood pressure elevated and I ordered Hydralazine HCl 10 mg IV. 0207: I checked on the patient. He is still having severe pain. He is asking for more medications. I will order him more Toradol. I went over the x-rays with the patient. I will order a Soap Suds Enema. 0210: Ordered Toradol 30 mg IV. Patient had the enema performed and had moderate results. He seemed to feel much better after the enema but then his left lower quadrant abdominal pain seemed to return. 0338: Ordered Sodium Chloride 1000 mL @ 250 mL/hr IV. 0340: I checked on the patient at this time. He states that his pain is worse than ever currently. I will discuss the case with [facility] hospitalist and they will evaluate for further management. 0404: Dr. Denise Wilder [facility] [place] made aware of the case. He will evaluate the patient for further intervention. Medical Decision The patient is a 77 year old male who presents to the Emergency Department with worsening abdominal pain and continued constipation. Differential diagnosis includes ileus, constipation, small bowel obstruction. Laboratory results were reviewed and show; Sodium of 126, renal function normal , glucose of 177, no leukocytosis, hemoglobin of 13.3. This is a 69-year-old male patient who presents to the emergency department with left lower quadrant abdominal pain and constipation. Obstruction series shows no evidence of small bowel obstruction. In fact, there is less stool present today than there was 2 days ago. However, the findings are consistent with an ileus. We are stuck in trying to treat this patient's pain with opioids. He has been seen twice in the emergency department had opioids both times. He now has nausea and previously had an episode of vomiting. There is no evidence of bowel obstruction but there is evidence of ileus. The patient's sodium is lower than it was just 2 days ago. He is complaining of intractable left lower quadrant abdominal pain. Medication Reconcilliation Current Medication List: was personally reviewed by me Blood Pressure Screening Patient's blood pressure: Elevated blood pressure Referred to hospitalist. Consults Time Called: 400 Consulting Physician: Dr. Denise MCWILLIAMS Returned Call: [phone] Dr. Denise MCWILLIAMS was made aware of the case. He will evaluate the patient for further intervention. Impression Primary Impression: Hyponatremia Additional Impressions: Ileus Intractable abdominal pain Scribe Attestation The scribe's documentation has been prepared under my direction and personally reviewed by me in its entirety. I confirm that the note above accurately reflects all work, treatment, procedures, and medical decision making performed by me. Departure Information Dispostion Being Evaluated By Hospitalist Referrals Celina Castillo DO (PCP) Patient Instructions [facility] Problem Qualifiers
[2018-03-18] MEDS ORDERED: SODIUM CHLORIDE 0.9% 1000ML 1,000 ML IV STA ×2 (01:04→03:38)
[2018-03-18] MEDS ORDERED: FENTANYL CITRATE INJ 50 MCG/1 ML 2 ML VIAL IV STA ×2 (01:04→03:38)
[2018-03-18 01:24] LABS: HEMATOCRIT 38.1 % (42-52); HEMOGLOBIN 13.3 g/dL (14.0-18.0); MEAN CORPUSCULAR HEMOGLOBIN 31.1 pg (25-34); MEAN CORPUSCULAR HGB CONC 34.9 g/dl (32-36); MEAN PLATELET VOLUME 9.5 fL (7.4-10.4); PLATELET COUNT 238 K/uL (130-400); RED CELL DISTRIBUTION WIDTH CV 12.8 % (11.5-14.5); RED CELL DISTRIBUTION WIDTH SD 41.2 fL (36.4-46.3); WHITE BLOOD COUNT 8.25 K/uL (4.8-10.8)
[2018-03-18 01:41] LABS: CALCIUM 8.7 mg/dl (8.5-10.1); CREATININE 0.86 mg/dl (0.60-1.40); POTASSIUM 4.3 mmol/L (3.5-5.1)
[2018-03-18] MEDS ORDERED: HydrALAZINE HCL 20 MG/ML VIAL IV. STA (01:57)
[2018-03-18] MEDS ORDERED: KETOROLAC TROMETHAMINE 30 MG/ML VIAL IV STA (02:10)
[2018-03-18 04:28] LABS: ALBUMIN 4.2 gm/dl (3.4-5.0); TOTAL PROTEIN 7.9 gm/dl (6.4-8.2)
[2018-03-18] MEDS ORDERED: GLUCOSE 10 TABS/TUBE PO PRN (05:15)
[2018-03-18] MEDS ORDERED: GLUCOSE 40% GEL 15 GM TUBE PO PRN (05:15)
[2018-03-18] MEDS ORDERED: DEXTROSE 50% 50 ML SYR IV PRN (05:15)
[2018-03-18] MEDS ORDERED: GLUCAGON FOR INJ 1 MG VIAL SQ PRN (05:15)
[2018-03-18] MEDS ORDERED: CARBOHYDRATES FOR HYPOGLYCEMIA PO PRN (05:15)
--- NOTE | 2018-03-18 05:27 | History and Physical ---
History & Physical Date & Time of Service: Mar 18, 2018 at 05:09 Chief Complaint: Flank Pain,Constipation,Elevated Blood Pressure Primary Care Physician: Celina Castillo DO History of Present Illness Source: patient The patient is a 77-year-old male with a past medical history of hypertension, hyperlipidemia, diabetes, chronic hyponatremia and bilateral carotid stenosis that presents with a 5 day history of constipation and abdominal pain. The patient states that his symptoms began on when he began to have left- sided abdominal discomfort. The pain was described as sharp, constant with episodes of acute worsening, 10 out of 10 at its worst, and over the left side and flank region. At 2 AM on Saturday morning the patient went to the emergency department and was given morphine that helped his pain subsided. A CT abdomen showed significant constipation although no bowel obstruction,was given an enema in the ED that helped produce a small amount of bowel, and discharged with instructions to take MiraLAX at home. The patient did not make any changes over the weekend and return to the emergency department at [facility] on Saturday with continued symptoms and severe pain. The patient was once again given pain medications and an enema and discharged home. The patient did report improved symptoms after the enema and the CT did not show any signs of obstruction at that time. Since leaving the ED the patient has taken 2 doses of MiraLAX with no further bowel movements. Today he reports that his pain continued to progress until it was 10 out of 10 along with episodes of nausea and vomiting this evening. Since he has only had the 2 bowel movements with enemas and no further bowel movements. Past Medical/Surgical History Medical Problems: (1) Constipation (2) Hyponatremia Family History Noncontributory Social History Smoking Status: Never Smoker Smokeless Tobacco Use: No Alcohol Use: none Drug Use: none Marital Status: Housing status: lives with family Occupational Status: retired Immunizations History of Influenza Vaccine: Unknown History of Tetanus Vaccine?: Unknown History of Pneumococcal: Unknown History of Hepatitis B Vaccine: Unknown Allergies Coded Allergies: Lisinopril (Unverified Adverse Reaction, Unknown, COUGH, 03/18/18) Home Medications Scheduled Amlodipine (Norvasc), 10 MG PO QAM Aspirin (Aspirin Chewable), 81 MG PO QPM Atorvastatin (Lipitor), 40 MG PO QPM Biotin (Biotin Gummies), 1 DOSE PO QAM Clopidogrel (Plavix), 75 MG PO QAM Glipizide (Glipizide Er), 1 TAB PO BID Multiple Vitamins W/ Minerals (Multivitamin Gummies Adul), 1 DOSE PO QAM Multiple Vitamins W/ Minerals (Preservision Areds 2), 1 CAP PO QAM Sodium Chloride (Sodium Chloride), 1 TAB PO DAILY Review of Systems Constitutional: No fever, No chills, No sweats Respiratory: No cough, No sputum, No wheezing, No shortness of breath, No dyspnea on exertion Cardiovascular: No chest pain, No palpitations Abdomen: + pain, + nausea, + vomiting, + constipation, No diarrhea Genitourinary - Male: No hematuria, No dysuria Neurologic: No numbness/tingling, No vertigo Endocrine: No fatigue, No excessive thirst, No excessive urination Physical Exam Vital Signs Date Time Temp Pulse Resp B/P (MAP) Pulse Ox O2 Delivery O2 Flow Rate FiO2 03/18/18 04:55 77 18 172/92 97 Room Air 03/18/18 03:32 78 18 207/113 98 Room Air 03/18/18 02:42 88 20 170/85 98 Room Air 03/18/18 01:45 97 20 204/110 95 Room Air 03/18/18 00:31 36.5 98 18 197/92 98 Room Air General Appearance: WD/WN, no apparent distress Head: normocephalic, atraumatic Eyes: normal inspection, sclerae normal Neck: supple, no carotid bruits Respiratory/Chest: chest non-tender, lungs clear, normal breath sounds Cardiovascular: regular rate, rhythm, no edema, no gallop Abdomen/GI: normal bowel sounds, soft, normal rectal exam, + tenderness (Over left flank region) Back: + pertinent finding (Left sided flank discomfort) Neurologic/Psych: alert, normal reflexes, oriented x 3 Diagnostics Laboratory Results Results Past 24 Hours Test 03/18/18 01:10 Range/Units White Blood Count 8.25 4.8-10.8 K/uL Red Blood Count 4.28 4.7-6.1 M/uL Hemoglobin 13.3 14.0-18.0 g/dL Hematocrit 38.1 42-52 % Mean Corpuscular Volume 89.0 80-100 fL Mean Corpuscular Hemoglobin 31.1 25-34 pg Mean Corpuscular Hemoglobin Concent 34.9 32-36 g/dl RDW Standard Deviation 41.2 36.4-46.3 fL RDW Coefficient of Variation 12.8 11.5-14.5 % Platelet Count 238 130-400 K/uL Mean Platelet Volume 9.5 7.4-10.4 fL Sodium Level 126 136-145 mmol/L Potassium Level 4.3 3.5-5.1 mmol/L Chloride Level 90 98-107 mmol/L Carbon Dioxide Level 26 21-32 mmol/L Anion Gap 10.0 3-11 mmol/L Blood Urea Nitrogen 13 7-18 mg/dl Creatinine 0.86 0.60-1.40 mg/dl Est Creatinine Clear Calc Drug Dose 63.8 ml/min Estimated GFR () 96.3 Estimated GFR (Non- 83.1 BUN/Creatinine Ratio 15.2 10-20 Random Glucose 177 70-99 mg/dl Osmolality 265 280-300 mOsm/kg Calcium Level 8.7 8.5-10.1 mg/dl Magnesium Level 2.3 1.8-2.4 mg/dl Total Bilirubin 0.5 0.2-1 mg/dl Direct Bilirubin 0.2 0-0.2 mg/dl Aspartate Amino Transf (AST/SGOT) 18 15-37 U/L Alanine Aminotransferase (ALT/SGPT) 26 12-78 U/L Alkaline Phosphatase 83 45-117 U/L Total Protein 7.9 6.4-8.2 gm/dl Albumin 4.2 3.4-5.0 gm/dl Impression Assessment and Plan The patient is a 77-year-old male with a past medical history of hypertension, hyperlipidemia, diabetes, chronic hyponatremia and bilateral carotid stenosis that presents with a 5 day history of constipation and abdominal pain Ileus with Abdominal Pain - CT Abdomen from 03/16: 1. Large amount of poorly formed stool within the colon. No definite evidence for bowel obstruction. Equivocal caliber change at the level of the mid descending colon without corresponding lesion by CT. A mucosal lesion is considered unlikely however a follow-up nonemergent colonoscopy is recommended. 2. Moderate distention of the bladder. 3. Prostate enlargement. - NPO except meds - IV NS @ 100 mls/hr - Toradol and Tylenol for pain control - Dulcolax suppository q8h PRN - GI Consult - Admit/ Med Surg Hyponatremia - Na 126 - History of Baseline Hyponatremia ranging 125-132 - IV NS @ 100 mls/hr HTN - Continue home PO Amlodipine - IV Hydralazine PRN Hyperlipidemia - Hold home PO Statin DM - Insulin sliding scale with BSG AC/HS Bilateral Carotid Stenosis - Continue home Aspirin and Plavix DVT - SCDs Code Status - Full Resuscitation Attending addendum: I have physically seen this patient, have supervised the medical residents activities, and agree with the H&P unless as otherwise noted. Assessment and Plan: Ileus-- Admit to nonmonitored bed. NPO except ice chips and essential medications NSS + KCl 20 mEq 100 mils per hour. Zofran 4 mg IV every 6 hours as needed. Pantoprazole 40 mg IV daily. Cipro 400 mg IV every 12 hours. Metronidazole 500 mg IV every 8 hours. Dulcolax suppository as needed. Serial KUBs. Consult gastroenterology. Hypertension/hyponatremia-- Hold amlodipine. IV fluids as above. As needed hydralazine IV. Diabetes mellitus-- Place on Accu-Cheks before meals and at bedtime with NovoLog coverage per scale. Remainder of orders and notations as above. Advanced Directives Existing Advance Directive: No Existing Living Will: No Existing Power of Digital Marketing Assistant: No Resuscitation Status Full Code VTE Prophylaxis Will order VTE Prophylaxis: Yes Social Service Consult None Apply Resident Tracking Resident Involvement: Resident Care Provided Care Provided: Adult Hospital Medicine
[2018-03-18] MEDS ORDERED: BISACODYL 10 MG SUPP PR PRN (05:30)
[2018-03-18] MEDS: SODIUM CHLORIDE 0.9% 1000ML 1,000 ML IV SCH ×2 (06:30→16:42)
--- NOTE | 2018-03-18 06:55 | DIAGNOSTIC IMAGING REPORT ---
ABDOMEN 2VIEW W/PA CHEST RTN HISTORY: 77 years-old Male eval for sbo acute constipation with bilateral flank pain COMPARISON: Acute abdominal series radiographs 03/16/2018 TECHNIQUE: PA view of the chest with erect and supine views of the abdomen FINDINGS: Cardiac silhouette is mildly enlarged, unchanged. Calcification of the aorta. Mild blunting of the costophrenic angles may reflect trace effusions and/or atelectasis. No pneumothorax or overt pulmonary edema. No lobar airspace consolidation. Degenerative changes of the shoulders and spine. Air-filled loops of small large bowel are again noted throughout the abdomen with a few scattered air-fluid levels, similar to slightly improved from comparison. Pattern appears nonobstructive. Moderate formed stool is noted throughout the colon and rectum. No urolith identified. IMPRESSION: 1. Suspected trace bilateral pleural effusions without acute process of the chest. 2. Moderate formed colonic stool suggests constipation. 3. Air-filled loops of small and large bowel are again noted suggesting ileus. The above report was generated using voice recognition software. It may contain grammatical, syntax or spelling errors. Electronically signed by: Eliud Chadwick M.D. 03/18/2018 6:54 AM Dictated Date/Time: 03/18/2018 6:50 AM
--- NOTE | 2018-03-18 07:18 | Family Medicine Progress Note ---
Progress Note Date of Service Mar 18, 2018. Subjective Pt evaluation today including: conversation w/ patient, physical exam, chart review, lab review, review of inpatient medication list Pain: Left sided abdominal and back pain reported PO Intake: NPO Voiding: no voiding problems Mr. Goss reports his pain is about a 4-5/10 in severity. He notes that it is a cramping type of pain that occurs every few minutes, and can be very severe. He is unaware of any triggers for his pain, but states that walking does help improve the pain. He also notes that passing gas and having a BM improves his pain somewhat as well. He also reports that he had a colonoscopy done 3 months ago due to a 2 week history of diarrhea, and states that they told him he had an aspirin related infection and they subsequently switched him from a daily full aspirin to a baby aspirin. He denies fever, chills, nausea or vomiting. He also denies urinary symptoms. Constitutional: No fever, No chills Respiratory: No shortness of breath Cardiovascular: No chest pain Abdomen: + pain, + constipation, No nausea, No vomiting Male : No dysuria, No urinary frequency, No incontinence, No slowing stream All Other Systems: Reviewed and Negative Medications Current Inpatient Medications Medications (Trade) Dose Ordered Sig/Landry Route Start Time Stop Time Status Last Admin Dose Admin Ondansetron HCl (Zofran Inj) 4 mg Q6H PRN IV 03/18/18 05:15 04/17/18 05:14 03/18/18 07:30 4 MG Amlodipine Besylate (Norvasc Tab) 10 mg QAM PO 03/18/18 09:00 04/17/18 08:59 03/18/18 07:23 10 MG Aspirin (Ecotrin Tab) 81 mg QPM PO 03/18/18 21:00 04/17/18 20:59 Clopidogrel Bisulfate (plAVix TAB) 75 mg QAM PO 03/18/18 09:00 04/17/18 08:59 03/18/18 07:24 75 MG Sodium Chloride 1,000 ml @ 100 mls/hr Q10H IV 03/18/18 05:15 04/17/18 05:14 03/18/18 06:30 100 MLS/HR Insulin Aspart (novoLOG ASPART) SLIDING SCALE If C... ACHS SC 03/18/18 07:00 04/17/18 06:59 Glucose (Glucose 40% Gel) 15-30 GRAMS 15 GRAMS... UD PRN PO 03/18/18 05:15 04/17/18 05:14 Glucose (Glucose Chew Tab) 4-8 Tablets 4 Tabl... UD PRN PO 03/18/18 05:15 04/17/18 05:14 Dextrose (Dextrose 50% 50ML Syringe) 25-50ML 25ML FOR ... UD PRN IV 03/18/18 05:15 04/17/18 05:14 Glucagon (Glucagon Inj) 1 mg UD PRN SQ 03/18/18 05:15 04/17/18 05:14 Carbohydrates (Carbohydrates For Hypoglycemia) 15-30 GRAMS 15 grams if BSG 54-69... UD PRN PO 03/18/18 05:15 04/17/18 05:14 Hydralazine HCl (HydrALAZINE INJ) 10 mg Q6H PRN IV. 03/18/18 05:15 04/17/18 05:14 03/18/18 07:31 10 MG Bisacodyl (Dulcolax Supp) 10 mg Q6H PRN DE 03/18/18 05:30 04/17/18 05:29 Ketorolac Tromethamine (Toradol Inj) 15 mg Q6H PRN IV. 03/18/18 08:30 03/23/18 08:29 Acetaminophen 100 ml @ 400 mls/hr Q8H PRN IV 03/18/18 05:30 04/17/18 05:29 03/18/18 07:48 400 MLS/HR Objective Vital Signs Date Time Temp Pulse Resp B/P (MAP) Pulse Ox O2 Delivery O2 Flow Rate FiO2 03/18/18 08:11 95 Room Air 03/18/18 08:10 Room Air 03/18/18 08:04 36.8 101 16 166/92 (116) 95 Room Air 03/18/18 07:20 104 18 181/81 (114) 97 Room Air 03/18/18 06:35 36.7 102 20 178/78 97 Room Air 03/18/18 06:16 20 178/78 98 03/18/18 06:10 36.7 102 18 184/101 97 Room Air 03/18/18 04:55 77 18 172/92 97 Room Air 03/18/18 03:32 78 18 207/113 98 Room Air 03/18/18 02:42 88 20 170/85 98 Room Air 03/18/18 01:45 97 20 204/110 95 Room Air 03/18/18 00:31 36.5 98 18 197/92 98 Room Air Physical Exam General Appearance: WD/WN, no apparent distress Respiratory/Chest: lungs clear, normal breath sounds, no respiratory distress, no accessory muscle use Cardiovascular: regular rate, rhythm, no edema, no murmur Abdomen: soft, + tenderness (mildly tender throughout lower abdomen, worst in LLQ), + pertinent finding (left lumbar region tender to palpation) Extremities: no pedal edema, no calf tenderness Laboratory Results Last 24 Hours Test 03/18/18 01:10 03/18/18 06:17 03/18/18 08:12 03/18/18 08:37 White Blood Count 8.25 K/uL Red Blood Count 4.28 M/uL Hemoglobin 13.3 g/dL Hematocrit 38.1 % Mean Corpuscular Volume 89.0 fL Mean Corpuscular Hemoglobin 31.1 pg Mean Corpuscular Hemoglobin Concent 34.9 g/dl RDW Standard Deviation 41.2 fL RDW Coefficient of Variation 12.8 % Platelet Count 238 K/uL Mean Platelet Volume 9.5 fL Sodium Level 126 mmol/L Potassium Level 4.3 mmol/L Chloride Level 90 mmol/L Carbon Dioxide Level 26 mmol/L Anion Gap 10.0 mmol/L Blood Urea Nitrogen 13 mg/dl Creatinine 0.86 mg/dl Est Creatinine Clear Calc Drug Dose 63.8 ml/min Estimated GFR () 96.3 Estimated GFR (Non- 83.1 BUN/Creatinine Ratio 15.2 Random Glucose 177 mg/dl Osmolality 265 mOsm/kg Calcium Level 8.7 mg/dl Magnesium Level 2.3 mg/dl Total Bilirubin 0.5 mg/dl Direct Bilirubin 0.2 mg/dl Aspartate Amino Transf (AST/SGOT) 18 U/L Alanine Aminotransferase (ALT/SGPT) 26 U/L Alkaline Phosphatase 83 U/L Total Protein 7.9 gm/dl Albumin 4.2 gm/dl Bedside Glucose 179 mg/dl 173 mg/dl Urine Osmolality 439 mOms/kg Assessment and Plan Mr. Goss is a 77-year-old male with a past medical history of hypertension, hyperlipidemia, diabetes, chronic hyponatremia and bilateral carotid stenosis that presents with a 5 day history of constipation and abdominal pain Ileus with Abdominal Pain - CT Abdomen from 03/16: 1. Large amount of poorly formed stool within the colon. No definite evidence for bowel obstruction. Equivocal caliber change at the level of the mid descending colon without corresponding lesion by CT. A mucosal lesion is considered unlikely however a follow-up nonemergent colonoscopy is recommended. - NPO except meds - IV NS @ 100 mls/hr - Toradol and Tylenol for pain control - pt's back pain suspicious for MSK origin of pain given improvement w/walking and trigger (recently playing golf), as well as decreased fecal burden on x-ray obtained at this visit -> voltaren gel & stretches - GI Consult regarding CT findings/management of constipation Hyponatremia - Na 126 - History of Baseline Hyponatremia ranging 125-132 - pt follows with nephro in outpatient setting - IV NS @ 100 mls/hr HTN - Continue home PO Amlodipine - IV Hydralazine PRN Hyperlipidemia - Hold home PO Statin DM - Insulin sliding scale with BSG AC/HS Bilateral Carotid Stenosis - Continue home Aspirin and Plavix DVT - SCDs Code Status - Full Resuscitation Resident Physician Supervision Note: I interviewed and examined the patient. Discussed with Dr. Dominique and agree with findings and plan as documented in the note. Any exceptions or clarifications are listed here: None Documented By: Gavin Barber L sided pain - started maybe 10 days ago. mostly back / flank - thought he strained back playing golf. coems on random. walking makes it better, passing gas makes it better. around the same time he did start to have stools change from large and normal to small loose pieces vitals noted nad breathing unlabored abd soft mild distention L sided tenderness no guarding no rebound no guarding ost / msk - L sided paraspinals/lateral Lspine musculature tender/decreased ROM - myofascial release and post-isometric relaxation - improved some. pain - ?both muscular and constpation/other bowel? await GI input on bowels. back pain/somatic dysfunction lumbar region - OMT as above, voltaren gel otherwise as above Resident Tracking Resident Involvement: Resident Care Provided Care Provided: Adult Hospital Medicine
[2018-03-18] MEDS: AMLODIPINE BESYLATE 5 MG TAB PO SCH (07:23)
[2018-03-18] MEDS: CLOPIDOGREL BISULFATE 75 MG TAB PO SCH (07:24)
[2018-03-18] MEDS: ONDANSETRON INJ 2 MG/ML 2 ML VIAL IV PRN (07:30)
[2018-03-18] MEDS: HydrALAZINE HCL 20 MG/ML VIAL IV. PRN (07:31)
[2018-03-18] MEDS: ACETAMINOPHEN IV 100 ML IV PRN ×2 (07:48→21:09)
[2018-03-18] MEDS: INSULIN ASPART 100 UNITS/ML 3 ML PEN SC SCH ×4 (10:23→21:00)
[2018-03-18] MEDS: KETOROLAC TROMETHAMINE 15 MG/ML VIAL IV. PRN (10:24)
--- NOTE | 2018-03-18 13:33 | GASTROINTESTINAL CONSULTATION ---
DATE OF CONSULTATION: 03/18/2018 REASON FOR EVALUATION: Left-sided abdominal pain and constipation. HISTORY OF PRESENT ILLNESS: The patient is a 77-year-old male with a 5-day history of severe, 10/10, left-sided abdominal pain. He has been to the Emergency Room 3 times in the last 5 days, once in [place] and twice here. The patient had a CAT scan of the abdomen that showed a fair amount of stool in the colon and an enlarged prostate, but no evidence of obstruction or impaction. He had a colonoscopy 3 months ago at the [facility] in [place] and was told that he had aspirin-induced colitis that was done because of diarrhea. The patient's last bowel movement was 5 days ago and he is admitted now for further evaluation. PAST MEDICAL HISTORY: Remarkable for hypertension, hyperlipidemia, diabetes, chronic hyponatremia, bilateral carotid stenosis with a CVA. MEDICATIONS: Baby aspirin, Norvasc, Lipitor, biotin, Plavix, glipizide, multiple vitamin and sodium chloride tablets. ALLERGIES: LISINOPRIL. FAMILY HISTORY: Negative for colon cancer. SOCIAL HISTORY: The patient is , lives with family. Does not smoke. He is retired. REVIEW OF SYSTEMS: Positive for nausea and abdominal pain. Remainder is negative. PHYSICAL EXAMINATION: GENERAL: The patient appears in no acute distress. VITAL SIGNS: Blood pressure is 172/92, pulse 77. ABDOMEN: Soft. There is mild tenderness in left mid abdomen. No mass or rebound. Liver and spleen were not enlarged. IMPRESSION AND PLAN: The patient is having left-sided abdominal pain which could be due to ischemia. Plan on getting a mesenteric Doppler and scheduling him for colonoscopy tomorrow. In the meantime, we will get a random cortisol level. We will continue to follow the patient. The patient should be on a proton pump inhibitor if he is going to continue on aspirin and Plavix.
[2018-03-18] MEDS: DICLOFENAC SOD 1% GEL 100 GM TUBE EXT SCH ×2 (14:05→21:04)
--- NOTE | 2018-03-18 15:49 | DIAGNOSTIC IMAGING REPORT ---
DUPLEX MESENTERIC HISTORY: 77 years-old Male abd pain, ?ischemia acute generalized abdominal pain COMPARISON: CT abdomen and pelvis 03/16/2018 TECHNIQUE: Multiple real-time sonographic images of the aorta and mesenteric vessels were obtained assessing grayscale appearance, color and spectral flow FINDINGS: The aorta is partially obscured by overlying bowel gas. Normal plug flow is seen within the proximal to mid abdominal aorta. Patent celiac trunk demonstrates mild spectral broadening with elevated peak systolic velocities measuring up to 642 cm/s at its origin. Patent superior mesenteric artery also demonstrates some spectral broadening with elevated peak stalk velocity measuring up to 330 cm/s (normal fasting peak systolic velocity is less than 275 cm/s). This vessel also demonstrates turbulent flow. Patent inferior mesenteric artery with peak systolic velocities measuring up to 380 cm/s with turbulent flow. Splenic artery is obscured by bowel gas. 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 These findings could be further characterized with dedicated CTA if clinically indicated. The above report was generated using voice recognition software. It may contain grammatical, syntax or spelling errors. Electronically signed by: Eliud Chadwick M.D. 03/18/2018 3:47 PM Dictated Date/Time: 03/18/2018 3:40 PM
[2018-03-18] MEDS: LAVAGE SOLUTION 4000ML PO SCH (16:58)
[2018-03-18] MEDS ORDERED: ASPIRIN 81 MG ECTAB PO SCH (21:00)
[2018-03-18] MEDS ORDERED: ATORVASTATIN 20 MG TAB PO SCH (21:00)
[2018-03-19] MEDS ORDERED: NURSING VERBAL MED ORDER ONE (01:30)
[2018-03-19] MEDS: SODIUM CHLORIDE 0.9% 1000ML 1,000 ML IV SCH ×2 (02:41→11:23)
[2018-03-19] MEDS: KETOROLAC TROMETHAMINE 15 MG/ML VIAL IV. PRN (03:43)
[2018-03-19] MEDS: LAVAGE SOLUTION 4000ML PO SCH (05:00)
[2018-03-19] MEDS: ACETAMINOPHEN IV 100 ML IV PRN (05:25)
[2018-03-19 06:05] LABS: CALCIUM 8.1 mg/dl (8.5-10.1); CREATININE 0.63 mg/dl (0.60-1.40); POTASSIUM 3.4 mmol/L (3.5-5.1)
[2018-03-19] MEDS: INSULIN ASPART 100 UNITS/ML 3 ML PEN SC SCH ×3 (06:15→18:52)
[2018-03-19 07:36] VITALS: BP 162/98; PULSE 103; TEMP 36.8; O2SAT 97
[2018-03-19 07:47] VITALS: O2SAT 97
[2018-03-19] MEDS: POTASSIUM CHLR 10 MEQ / WTR 100 ML IV SCH ×4 (08:13→11:23)
[2018-03-19] MEDS: AMLODIPINE BESYLATE 5 MG TAB PO SCH (08:19)
[2018-03-19] MEDS: CLOPIDOGREL BISULFATE 75 MG TAB PO SCH (08:20)
[2018-03-19] MEDS: DICLOFENAC SOD 1% GEL 100 GM TUBE EXT SCH ×2 (08:20→13:31)
[2018-03-19] MEDS: ONDANSETRON INJ 2 MG/ML 2 ML VIAL IV PRN (08:31)
[2018-03-19] MEDS ORDERED: PANTOprazole SOD 40 MG TAB PO SCH (09:00)
[2018-03-19 11:52] VITALS: BP 164/82; PULSE 90; TEMP 36.8; O2SAT 96
--- NOTE | 2018-03-19 14:56 | Endo History and Physical ---
History & Physical Date of Service: Mar 19, 2018. Chief Complaint: abd pain Referring Physician: Dr Atkins History of Present Illness For ileoscopy and sigmoidoscopy Past Surgical History Hx Cardiac Surgery: No Hx Internal Defibrillator: No Hx Pacemaker: No Hx Abdominal Surgery: No Hx Post-Op Nausea and Vomiting: No Hx Cancer Surgery: No Hx Thoracic Surgery: No Hx Orthopedic: No Hx Urinary Tract Surgery: No Social History Smoking Status: Former Smoker Smokeless Tobacco Use: No Hx Substance Use: No Hx Alcohol Use: Yes (2-3 beers 2-3 times a week) Allergies Coded Allergies: Lisinopril (Unverified Adverse Reaction, Unknown, COUGH, 03/18/18) Current Medications Reported Home Medications Medications Dose Route/Sig Max Daily Dose Days Date Category Sodium Chloride 1 Gm Tab 1 Tab PO DAILY 03/16/18 Reported Glipizide Er (Glipizide) 5 Mg Tab 1 Tab PO BID 90 03/16/18 Reported Norvasc (Amlodipine Besylate) 10 Mg Tab 10 Mg PO QAM 09/26/17 Reported Biotin Gummies (Biotin) 1,000 Mcg Chw 1 Dose PO QAM 09/26/17 Reported Multivitamin Gummies Adul (Multiple Vitamins W/ Minerals) 1 Chw Chw 1 Dose PO QAM 09/26/17 Reported Aspirin Chewable (Aspirin) 81 Mg Chew 81 Mg PO QPM 09/26/17 Reported Plavix (Clopidogrel Bisulfate) 75 Mg Tab 75 Mg PO QAM 09/26/17 Reported Lipitor (Atorvastatin Calcium) 40 Mg Tab 40 Mg PO QPM 09/26/17 Reported Vital Signs Weight (Kilograms): 72.000 Height (Feet): 5 Height (Inches): 6.00 Date Time Temp Pulse Resp B/P (MAP) Pulse Ox O2 Delivery O2 Flow Rate FiO2 03/19/18 11:52 36.8 90 16 164/82 (109) 96 Room Air 03/19/18 07:47 97 Room Air 03/19/18 07:45 Room Air 03/19/18 07:36 36.8 103 18 162/98 (119) 97 Room Air 03/19/18 00:00 Room Air 03/18/18 23:20 36.9 105 16 166/84 (111) 95 Room Air 03/18/18 20:00 Room Air 03/18/18 16:35 36.7 104 18 150/83 (105) 96 Room Air 03/18/18 16:00 Room Air Physical Exam General Appearance: WD/WN Respiratory/Chest: Respiratory effort: no dyspnea Cardiovascular: Heart Auscultation: RRR Abdomen: Inspection & Palpation: soft Assessment and Plan Abd pain for colonoscopy
[2018-03-19] MEDS ORDERED: LIDOCAINE HCL 2% 2 ML VIAL (20MG/ML) ONE (15:27)
[2018-03-19] MEDS ORDERED: PROPOFOL IV EMULSION 10 MG/ML 20 ML VIAL ONE ×2 (15:27→15:48)
--- NOTE | 2018-03-19 15:50 | GI REPORT ---
Patient Name: Dimitri Goss Procedure Date: 03/19/2018 3:26 PM Date of : 1940 Admit Type: Inpatient Age: 77 Gender: Male Attending MD: Aleks Ervin MD Procedure: Colonoscopy Providers: Aleks Ervin MD Referring MD: Demarcus Walker Indications: Abdominal pain in the left lower quadrant, Abnormal CT of the GI tract Medicines: Propofol total dose 280 mg IV, Lidocaine 40 mg IV Complications: No immediate complications. Estimated Blood Loss: Estimated blood loss: none. Procedure: Pre-Anesthesia Assessment: - Prior to the procedure, a History and Physical was performed, and patient medications, allergies and sensitivities were reviewed. The patient's tolerance of previous anesthesia was reviewed. - The risks and benefits of the procedure and the sedation options and risks were discussed with the patient. All questions were answered and informed consent was obtained. After I obtained informed consent, the scope was passed under direct vision. Throughout the procedure, the patient's blood pressure, pulse, and oxygen saturations were monitored continuously. The scope was introduced through the anus and advanced to the cecum, identified by appendiceal orifice and ileocecal valve. The colonoscopy was performed without difficulty. The patient tolerated the procedure well. The quality of the bowel preparation was fair. Findings: Non-bleeding external and internal hemorrhoids were found during perianal exam. The hemorrhoids were mild. A few small-mouthed diverticula were found in the sigmoid colon. Impression: - Preparation of the colon was fair. - Non-bleeding external and internal hemorrhoids. - Diverticulosis in the sigmoid colon. - No specimens collected. Recommendation: - Return patient to hospital [facility] for ongoing care. Aleks Ervin M.D. Aleks Ervin MD 03/19/2018 3:50:28 PM This report has been signed electronically. Note Initiated On: 03/19/2018 3:26 PM Number of Addenda: 0 I attest to the content of the Intraoperative Record and orders documented therein, exceptions below {[id number]}
--- NOTE | 2018-03-19 15:51 | Discharge Instructions ---
Endoscopy Patient Instructions Date / Procedure(s) Performed Mar 19, 2018. Colonoscopy Allergy Information Coded Allergies: Lisinopril (Unverified Adverse Reaction, Unknown, COUGH, 03/19/18) Discharge Date / Findings Mar 19, 2018. diverticulosis, hemorrhoids Medication Instructions Restart Stopped Medication(s): resume meds Current Inpatient Medications Medications (Trade) Dose Ordered Sig/Landry Route Start Time Stop Time Status Last Admin Dose Admin Ondansetron HCl (Zofran Inj) 4 mg Q6H PRN IV 03/18/18 05:15 04/17/18 05:14 03/19/18 08:31 4 MG Amlodipine Besylate (Norvasc Tab) 10 mg QAM PO 03/18/18 09:00 04/17/18 08:59 03/19/18 08:19 10 MG Aspirin (Ecotrin Tab) 81 mg QPM PO 03/18/18 21:00 04/17/18 20:59 03/18/18 21:04 81 MG Clopidogrel Bisulfate (plAVix TAB) 75 mg QAM PO 03/18/18 09:00 04/17/18 08:59 03/18/18 07:24 75 MG Sodium Chloride 1,000 ml @ 100 mls/hr Q10H IV 03/18/18 05:15 04/17/18 05:14 03/19/18 11:23 100 MLS/HR Glucose (Glucose 40% Gel) 15-30 GRAMS 15 GRAMS... UD PRN PO 03/18/18 05:15 04/17/18 05:14 Glucose (Glucose Chew Tab) 4-8 Tablets 4 Tabl... UD PRN PO 03/18/18 05:15 04/17/18 05:14 Dextrose (Dextrose 50% 50ML Syringe) 25-50ML 25ML FOR ... UD PRN IV 03/18/18 05:15 04/17/18 05:14 Glucagon (Glucagon Inj) 1 mg UD PRN SQ 03/18/18 05:15 04/17/18 05:14 Carbohydrates (Carbohydrates For Hypoglycemia) 15-30 GRAMS 15 grams if BSG 54-69... UD PRN PO 03/18/18 05:15 04/17/18 05:14 Hydralazine HCl (HydrALAZINE INJ) 10 mg Q6H PRN IV. 03/18/18 05:15 04/17/18 05:14 03/18/18 07:31 10 MG Bisacodyl (Dulcolax Supp) 10 mg Q6H PRN ID 03/18/18 05:30 04/17/18 05:29 Ketorolac Tromethamine (Toradol Inj) 15 mg Q6H PRN IV. 03/18/18 08:30 03/23/18 08:29 03/19/18 03:43 15 MG Acetaminophen 100 ml @ 400 mls/hr Q8H PRN IV 03/18/18 05:30 04/17/18 05:29 03/19/18 05:25 400 MLS/HR Diclofenac Sodium (Voltaren 1% Top Gel) 1 appln TID EXT 03/18/18 14:00 04/17/18 13:59 03/19/18 13:31 1 APPLN Pantoprazole Sodium (Protonix Tab) 40 mg QAM PO 03/19/18 09:00 04/18/18 08:59 03/19/18 08:20 40 MG Insulin Aspart (novoLOG ASPART) SLIDING SCALE If C... Q6 SC 03/19/18 06:00 04/18/18 05:59 03/19/18 06:15 1 UNITS Provider Instructions Activity Restrictions - No exercising or heavy lifting for 24 hours. - Do not drink alcohol the day of the procedure. - Do not drive a car or operate machinery until the day after the procedure. - Do not make any important decisions or sign important papers in 24 hours after the procedure. Following Day: - Return to full activity which may include returning to work/school. Diet Start your diet with liquids and light foods (jello, soup, juice, toast). Then eat your usual diet if not nauseated. Treatment For Common After Affects For mild abdominal pain, bloating, or excessive gas: - Rest - Eat lightly - Lie on right side Follow-Up Information Follow-up with as scheduled Anesthesia Information What You Should Know You have had a procedure that required some medicine to reduce anxiety and discomfort. This treatment is called moderate sedation. After receiving the treatment, you may be sleepy, but you will be able to breathe on your own. The effects of the treatment may last for several hours. Follow these instructions along with Activity/Diet recommendations noted above: * Do NOT do anything where dizziness or clumsiness would be dangerous. * Rest quietly at home today, then you can be up and about tomorrow. * Have a responsible person stay with you the rest of today. * You may have had an I.V. today. If so, you may take the dressing off later today. Recommendations Call your doctor if: * Trouble breathing * Continuous vomiting for more than 24 hours * Temperature above 101 degrees * Severe abdominal pain or bloating * Pain not relieved by pain medicine ordered * There is increased drainage or redness from any incision * A large amount of rectal bleeding greater than 2-3 tablespoons. (If you had a polyp/s removed or have hemorrhoids, a small amount of blood - from the rectum is to be expected.) * You have any unanswered questions or concerns. IN THE EVENT OF A SERIOUS EMERGENCY, GO TO THE NEAREST EMERGENCY ROOM Your discharge instructions were prepared by provider Aleks Ervin. Patient Instructions Signature Page Dimitri Goss Patient (or Guardian) Signature/Date: I have read and understand the instructions given to me by my caregivers. Caregiver/RN/Doctor Signature/Date: The above-named patient and/or guardian has received patient instructions on this date. + Original Patient Signature Page (only) stays with chart. Please make copy for patient.
[2018-03-19] MEDS ORDERED: OPTIRAY 320 IV PRN (16:00)
--- NOTE | 2018-03-19 16:08 | PROGRESS NOTE ---
DATE: 03/19/2018 The patient underwent a colonoscopy today for evaluation of his left-sided abdominal pain and colonic thickening on CT. The colonoscopic exam showed the prep to be fair, but I was able to reach the cecum. The mucosa throughout the colon was normal. There was no evidence of ischemia. He did have a few small sigmoid diverticula and some mild hemorrhoids, but no inflammation, polyps, cancers or vascular insufficiency. His mesenteric Doppler did show significant stenosis of the celiac, SMA, and inferior mesenteric arteries. IMPRESSION: The patient's left-sided abdominal pain does not show any evidence of ischemic bowel colonoscopically, but he does have stenosis on mesenteric ultrasound. I plan on ordering a CT angiogram and consulting with Dr. Salas for further evaluation.
--- NOTE | 2018-03-19 17:02 | DIAGNOSTIC IMAGING REPORT ---
CT ANGIOGRAM OF THE ABDOMEN CLINICAL HISTORY: Generalized abdominal pain. COMPARISON STUDY: Abdominal CT dated 03/16/2018. TECHNIQUE: Following the IV administration of 115 cc of Optiray 320, CT angiogram of the abdomen was performed from the lung bases the pelvic inlet. Images are reviewed in the axial, sagittal, and coronal planes. 3-D MIPS images are created and assessed. IV contrast was administered without complication. A dose lowering technique was utilized adhering to the principles of ALARA. CT DOSE: 231.50 mGy.cm FINDINGS: Lower chest: The heart is time normal in size and there is a small pericardial effusion. The lung bases are clear noting mild bibasilar scarring/atelectasis. There is a small to moderate hiatal hernia. Liver: The contrast-enhanced liver is normal in size, contour, and attenuation. There is no intrahepatic or ductal dilatation. Gallbladder: Unremarkable. Spleen: Normal in size and attenuation. Pancreas: Atrophic and grossly unremarkable. Adrenal glands: Unremarkable. Kidneys: The contrast enhanced kidneys demonstrate mild cortical atrophy and are without hydronephrosis. The kidneys enhance symmetrically. A retroaortic left renal vein is incidentally noted. Abdominal aorta and iliac arteries: There is advanced atherosclerotic calcification and irregularity of the abdominal aorta and visualized common iliac arteries. No aneurysm or dissection is seen. Major branches of the abdominal aorta: The celiac trunk and superior mesenteric artery are patent. There is at least mild stenosis at the origin of the inferior mesenteric artery which is otherwise patent. Hepatic arterial anatomy is conventional. The splenic artery is patent. There are 2 right renal arteries and a single left renal artery. There is mild stenosis of the origin of the smaller and more superiorly located right renal artery. The remaining renal arteries are patent. Bowel: Visualized loops of small bowel and colon are normal in caliber. No bowel obstruction is seen. Mild gaseous distention of the colon persists. Colonic fecal retention has improved from 03/16/2018. Peritoneum: There is no intraperitoneal free air or abdominal ascites. Lymphadenopathy: None. Skeletal structures: The skeletal structures are osteopenic. Lumbosacral spondylosis is observed. There is a left-sided pars defect at L5. No lytic or blastic lesion is seen. IMPRESSION: 1. There is advanced atherosclerotic calcification and irregularity seen throughout the abdominal aorta. No aneurysm or dissection is identified. 2. The celiac trunk and superior mesenteric artery are patent. 3. There is at least mild stenosis at the origin of the inferior mesenteric artery. The remainder of the vessel is patent as imaged. 4. There are 2 right renal arteries and a single left renal artery. There is mild stenosis at the origin of the smaller and more superiorly located right renal artery. 5. Mild gaseous distention of the colon persists. No bowel obstruction is seen, and fecal burden throughout the colon has decreased from 03/16/2018. Electronically signed by: Donaldo Booth M.D. 03/19/2018 5:00 PM Dictated Date/Time: 03/19/2018 4:50 PM
[2018-03-19] MEDS: HydrALAZINE HCL 20 MG/ML VIAL IV. PRN (17:11)
[2018-03-19 18:53] VITALS: BP 175/95; PULSE 94; TEMP 36.4; O2SAT 97
--- NOTE | 2018-03-19 18:57 | Discharge Summary ---
Discharge Summary Date of Service Mar 19, 2018. Discharge Summary Admission Date: Mar 18, 2018 at 05:08 Discharge Date: Mar 19, 2018 Discharge Disposition: Home Principal Diagnosis: Constipation Problems/Secondary Diagnoses: 1) Hyponatremia 2) Hypertension 3) Hyperlipidemia 4) DM 5) Bilateral carotid artery stenosis Immunizations: Have You Had Influenza Vaccine: Unknown History of Tetanus Vaccine?: Unknown History of Pneumococcal: Unknown History of Hepatitis B Vaccine: Unknown Procedures: CTA Abdomen IMPRESSION: 1. There is advanced atherosclerotic calcification and irregularity seen throughout the abdominal aorta. No aneurysm or dissection is identified. 2. The celiac trunk and superior mesenteric artery are patent. 3. There is at least mild stenosis at the origin of the inferior mesenteric artery. The remainder of the vessel is patent as imaged. 4. There are 2 right renal arteries and a single left renal artery. There is mild stenosis at the origin of the smaller and more superiorly located right renal artery. 5. Mild gaseous distention of the colon persists. No bowel obstruction is seen, and fecal burden throughout the colon has decreased from 03/16/2018. Abdominal U/S w/dopplers IMPRESSION: Elevated peak systolic velocities within the celiac trunk, superior and inferior mesenteric arteries suggest high-grade luminal narrowing (greater than 70%). These findings could be further characterized with dedicated CTA if clinically indicated. Chest and Abdominal X-ray IMPRESSION: 1. Suspected trace bilateral pleural effusions without acute process of the chest. 2. Moderate formed colonic stool suggests constipation. 3. Air-filled loops of small and large bowel are again noted suggesting ileus. Consultations: Gastrointestinal Medication Reconciliation Continued Medications: Amlodipine (Norvasc) 10 Mg Tab 10 MG PO QAM, TAB Aspirin (Aspirin Chewable) 81 Mg Chew 81 MG PO QPM Atorvastatin (Lipitor) 40 Mg Tab 40 MG PO QPM, TAB Biotin (Biotin Gummies) 1,000 Mcg Chw 1 DOSE PO QAM Clopidogrel (Plavix) 75 Mg Tab 75 MG PO QAM, TAB Glipizide (Glipizide Er) 5 Mg Tab 1 TAB PO BID for 90 Days, #180 TAB 3 Refills Multiple Vitamins W/ Minerals (Multivitamin Gummies Adul) 1 Chw Chw 1 DOSE PO QAM Multiple Vitamins W/ Minerals (Preservision Areds 2) 1 Cap Cap 1 CAP PO QAM Sodium Chloride (Sodium Chloride) 1 Gm Tab 1 TAB PO DAILY Discharge Exam Mr. Goss reports he feels better today. He states he had several bowel movements after the bowel prep medication and did not notice any blood in them. He reports his abdominal pain and distention has greatly improved as a result. He does remain with left sided back pain. Review of Systems: Constitutional: No fever, No chills Respiratory: No shortness of breath Cardiovascular: No chest pain Abdomen: No pain, No nausea, No vomiting, No diarrhea Musculoskeletal: + problem reported (left sided back pain) Physical Exam: General Appearance: WD/WN, no apparent distress Respiratory/Chest: lungs clear, normal breath sounds, no respiratory distress, no accessory muscle use Cardiovascular: regular rate, rhythm, no edema, no gallop, no JVD, no murmur Abdomen / GI: non tender, soft, + distended (mildly), + pertinent finding ( left lumbar area tender on back) Hospital Course Mr. Goss is a 77-year-old male with a past medical history of hypertension, hyperlipidemia, diabetes, chronic hyponatremia and bilateral carotid stenosis that presents with a 5 day history of constipation and abdominal pain Ileus with Abdominal Pain - CT Abdomen from 03/16: Large amount of poorly formed stool within the colon. No definite evidence for bowel obstruction. - Pt treated conservatively - made NPO w/IV hydration and treated with toradol and tylenol for back pain - pt's back pain suspicious for MSK origin of pain given improvement w/walking and trigger (recently playing golf), as well as decreased fecal burden on x-ray obtained at this visit -> voltaren gel & stretches -> improved pain - GI Consult regarding CT findings/management of constipation -> abdominal U/S w/dopplers ordered which was concerning for high grade luminal narrowing -> CTA abdomen w/out severe stenosis (see above) -> colonoscopy WNL - patient eating well after procedure and felt to be safe for d/c Hyponatremia - Na 126 - History of Baseline Hyponatremia ranging 125-132 - pt follows with nephro in outpatient setting - at baseline during hospital stay Resident Physician Supervision Note: I interviewed and examined the patient. Discussed with Dr. Dominique and agree with findings and plan as documented in the note. Any exceptions or clarifications are listed here: None Documented By: Gavin Barber feeling better actually felt better with bowel prep as far as abdomen back feeling better w voltaren gel vitals noted nad breathing unlabored no pallor or icterus abdominal pain - constipation - resolved back pain - muscular - voltaren gel, chiropractic mild mesenteric ischemia, aortic disease - has to see vascular as outpt anyway - will ask for referral for this Total Time Spent: Greater than 30 minutes This includes examination of the patient, discharge planning, medication reconciliation, and communication with other providers. Discharge Instructions Please refer to the electronic Patient Visit Report (Discharge Instructions) for additional information. Additional Copies To Noe Null MD Resident Tracking Resident Involvement: Resident Care Provided Care Provided: Adult Hospital Medicine
--- NOTE | 2018-03-20 08:39 | Medical Consult ---
Consultation Note Date of Service Mar 20, 2018. Consultation Note Patient was discharged before being seen.
== END 2018-03-19 19:25 | disposition home or self-care (01) | DRG 389 ==
LOC: C.EDB 00:28 → C.MSN 05:08 → ENRESERV 05:56
PROVIDERS: ADMIT Student in an Organized Health Care Education/Training Program; ATTEND Hospitalist
PROC: 0DJD8ZZ Inspection of Lower Intestinal Tract, Via Natural or Artificial Opening Endoscopic (ICD-10-PCS; principal; 2018-03-19 14:49)
DX: K56.7 Ileus, unspecified (principal); E87.1 Hypo-osmolality and hyponatremia; M99.03 Segmental and somatic dysfunction of lumbar region; K57.30 Diverticulosis of large intestine without perforation or abscess without bleeding; I10 Essential (primary) hypertension; E78.5 Hyperlipidemia, unspecified; E11.9 Type 2 diabetes mellitus without complications; I65.23 Occlusion and stenosis of bilateral carotid arteries; Z86.73 Personal history of transient ischemic attack (TIA), and cerebral infarction without residual deficits; Z87.891 Personal history of nicotine dependence; Z79.02 Long term (current) use of antithrombotics/antiplatelets; Z79.82 Long term (current) use of aspirin; Z79.84 Long term (current) use of oral hypoglycemic drugs; Z79.899 Other long term (current) drug therapy; Z88.8 Allergy status to other drugs, medicaments and biological substances

== ENCOUNTER 2019-07-14 05:06 | Inpatient (IN) ==
--- NOTE | 2019-06-22 13:44 | PAT Medication Instructions ---
Medication Instructions Date of Service June 22, 2019 Home Medications Medication Instructions Recorded glipizide 5 mg tablet 5 mg PO BID #180 tab 03/05/19 multivitamin 2 tab PO QAM potassium chloride 20 mEq tablet,extended release 20 meq PO QAM vitamins A,C,T-bbrk-xwhhga 1 tab PO BID biotin 1,000 mcg chewable tablet 2 mcg DAILY diclofenac sodium 1 % topical gel 2 gm TOP QID PRN meloxicam 15 mg tablet 15 mg PO QAM omeprazole 20 mg capsule,delayed release 20 mg PO Q2D sodium chloride 1,000 mg soluble tablet 1,000 mg PO QPM glipizide 5 mg tablet 5 mg PO BID Prevagen 1 tab PO QAM amlodipine 10 mg PO QAM PRN apple cider vinegar 450 mg PO QAM aspirin [Adult Low Dose Aspirin] 81 mg PO QPM atorvastatin 40 mg PO QPM clopidogrel 75 mg PO QAM furosemide 20 mg PO QAM psyllium husk [Metamucil] 1 tbsp PO BID ASK your surgeon for instructions meloxicam 15 mg tablet 15 mg PO QAM ASK your prescriber and surgeon clopidogrel 75 mg PO QAM (in order for spinal anesthesia, clopidogrel/plavix needs to be stopped 7 days before surgery. Please check if okay with doctor that prescribes this to you) STOP taking 2 weeks before surgery (or as soon as possible if surgery is within 2 weeks) vitamins A,C,T-djfm-xffncn 1 tab PO BID biotin 1,000 mcg chewable tablet 2 mcg DAILY apple cider vinegar 450 mg PO QAM Prevagen 1 tab PO QAM STOP taking 24 hours before surgery diclofenac sodium 1 % topical gel 2 gm TOP QID PRN DO NOT take the morning of surgery multivitamin 2 tab PO QAM potassium chloride 20 mEq tablet,extended release 20 meq PO QAM glipizide 5 mg tablet 5 mg PO BID furosemide 20 mg PO QAM psyllium husk [Metamucil] 1 tbsp PO BID Take morning of surgery With a small sip of water, OTHERWISE NOTHING TO EAT OR DRINK AFTER MIDNIGHT: omeprazole 20 mg capsule,delayed release 20 mg PO Q2D (if scheduled to take on day of surgery) amlodipine 10 mg PO QAM PRN (if needed) Take evening before surgery sodium chloride 1,000 mg soluble tablet 1,000 mg PO QPM glipizide 5 mg tablet 5 mg PO BID aspirin [Adult Low Dose Aspirin] 81 mg PO QPM atorvastatin 40 mg PO QPM psyllium husk [Metamucil] 1 tbsp PO BID Other Notes If you have any questions please call us at [phone] or [phone] or [phone] or [phone]
--- NOTE | 2019-06-23 12:12 | Anesthesiology Consultation ---
Date of Service June 23, 2019 Assessment & Plan (1) Encounter for pre-operative examination: - Awaiting surgeon-ordered PCP ([facility]) and cardiology (Dr. Orourke) preop evaluation. - Per patient, cardiac cath done in 2019 ([facility]). Awaiting report as well as any other cardiac testing if available. - Attempting to obtain most recent carotid imaging (Dr. Milner). - Check BSG AM DOS - ASA/Plavix instructions: ASA okay to continue perioperatively per surgeon. Plavix to hold 7 days prior to surgery per prescriber. - Interventional Neurology: 11/11/18: Doing well from a neurological standpoint. Hx NYASIA occlusion. Left CEA (2016). Continued on ASA/plavix. Chart Review Chart Review: Patient seen in Pre Admission Testing Teaching & Discussion Pre-Anesthesia Teaching/Discussion Notes: Instructed NPO after midnight before surgery,except medications with 15 cc of water. Medication instructions pro vided according to the PAT guidelines. History Surgery Operation Date: 07/14/19 07:00 Proposed Procedures p Left Total Knee Arthroplasty - Itz Hassan MD Height/Weight Height: 5 ft 5.5 in Weight: 86 kg Allergies Allergy/AdvReac Type Severity Reaction Status Date / Time lisinopril AdvReac Unknown COUGH Verified 06/17/19 08:54 Medications Home Medications Medication Instructions Recorded Confirmed Last Taken multivitamin 2 tab PO QAM 01/19/19 06/17/19 Unknown potassium chloride 20 mEq 20 meq PO QAM #30 tab 01/19/19 06/17/19 Unknown tablet,extended release vitamins A,C,E-nytt-ioacwc 1 tab PO BID 01/19/19 06/17/19 Unknown biotin 1,000 mcg chewable tablet 2 mcg DAILY tab 02/09/19 06/17/19 Unknown diclofenac sodium 1 % topical gel 2 gm TOP QID PRN gm 02/09/19 06/17/19 Unknown meloxicam 15 mg tablet 15 mg PO QAM 02/09/19 06/17/19 Unknown omeprazole 20 mg capsule,delayed 20 mg PO Q2D cap 02/09/19 06/17/19 Unknown release sodium chloride 1,000 mg soluble 1,000 mg PO QPM #60 tab 02/09/19 06/17/19 Unknown tablet glipizide 5 mg tablet 5 mg PO BID #180 tab 03/05/19 06/17/19 Unknown Prevagen 1 tab PO QAM 06/17/19 06/17/19 Unknown amlodipine 10 mg PO QAM PRN 06/17/19 06/17/19 Unknown apple cider vinegar 450 mg PO QAM 06/17/19 06/17/19 Unknown aspirin [Adult Low Dose Aspirin] 81 mg PO QPM 06/17/19 06/17/19 Unknown atorvastatin 40 mg PO QPM 06/17/19 06/17/19 Unknown clopidogrel 75 mg PO QAM 06/17/19 06/17/19 Unknown furosemide 20 mg PO QAM 06/17/19 06/17/19 Unknown psyllium husk [Metamucil] 1 tbsp PO BID 06/17/19 06/17/19 Unknown Past Medical History Medical History (Updated 06/23/19 @ 12:45 by Vesta Parry) Acid reflux controlled Arthritis Diabetes NIDDM Diabetic retinopathy, nonproliferative History of stroke 2017- no residual effects Hypertension Microscopic colitis hx Normocytic anemia Obesity Occlusion of right internal carotid artery Stenosis of left carotid artery s/p left CEA (2016)- on ASA/plavix Exercise / Class Metabolic Activity III < 4 Walking/Shop/Light housework Past Family History Family History Mother Cardiac disorder Kidney stones Myocardial infarction, Onset Age: 45 Hypertension Family history of diabetes mellitus Brother Kidney stones Hypertension Past Surgical History Surgical History H/O carotid endarterectomy LEFT (2016) H/O hernia repair History of cardiac cath 11/05/18= NO STENTS ([facility]) History of tonsillectomy Social History Smoking Status: Former smoker (stopped many years ago. ) Do You Dip or Chew Tobacco: No Smoking End Date: QUIT 20+ YRS AGO Hx Alcohol Use: Yes Alcohol type: beer alcohol intake frequency: a few times a week Hx Substance Use: No Review of Systems Reflux controlled. Patient denies chest pain, shortness of breath, cough, wheezing, palpitations. Physical Exam Vital Signs VITALS BP 149/89 P 56 TEMP 97.6 SP02 98%RA RESP 16 PHYSICAL Full neck and c-spine range of motion. Full TMJ range of motion. TMD 3 finger breaths Mallampati Score 2 Dentition: full upper denture, missing lower molars Lungs: clear throughout to auscultation Cardiac: regular rate and rhythm, no murmurs noted Spine: normal Carotid arteries: negative bruit Extremities: no edema Testing Laboratory Results 06/23/19 12:35 06/23/19 12:35 PT 10.3 Seconds (9.0-12.0) 06/23/19 12:35 INR 1.0 (0.9-1.1) 06/23/19 12:35 APTT 26.9 Seconds (21.0-31.0) 06/23/19 12:35 Hemoglobin A1c 6.6 % (4.5-5.6) H 06/23/19 12:35 Blood Type O Negative 06/23/19 12:35 Antibody Screen NEGATIVE 06/23/19 12:35 Electrocardiogram Date: 06/23/19 SR with sinus arrhythmia with occasional PVCs at 78bpm. Otherwise "normal" ECG. Echocardiogram Date: 02/13/17 LVEF 58%. Thickened AV/MV. Borderline pulmonary HTN. Grade I DD. Trivial pericardial effusion.
[2019-06-23 13:55] LABS: Basophils # (auto) 0.05 K/uL (0-0.2); Basophils % (auto) 0.7 %; Eosinophils % (auto) 5.7 %; Hematocrit (blood only) 40.1 % (42-52); Hemoglobin 13.4 g/dL (14.0-18.0); Immature Granulocytes # (auto) 0.02 K/uL (0.00-0.02); Immature Granulocytes % (auto) 0.3 %; Lymphocytes # (auto) 1.73 K/uL (1.2-3.4); Lymphocytes % (auto) 24.7 %; Mean Corpuscular Hemoglobin 32.1 pg (25-34); Mean Corpuscular Hgb Conc 33.4 g/dL (32-36); Mean Corpuscular Volume 95.9 fL (80-100); Mean Platelet Volume 10.7 fL (7.4-10.4); Monocytes # (auto) 0.63 K/uL (0.11-0.59); Neutrophils # (auto) 4.16 K/uL (1.4-6.5); Neutrophils % (auto) 59.6 %; Platelet Count 223 K/uL (130-400); RDW Coefficient of Variation 12.6 % (11.5-14.5); RDW Standard Deviation 43.9 fL (36.4-46.3); Red Blood Count 4.18 M/uL (4.7-6.1); White Blood Count 6.99 K/uL (4.8-10.8)
[2019-06-23 14:05] LABS: Partial Thromboplastin Time 26.9 Seconds (21.0-31.0); Prothrombin Time 10.3 Seconds (9.0-12.0)
[2019-06-23 15:05] LABS: Estimated Average Glucose 143 mg/dl; Hemoglobin A1C 6.6 % (4.5-5.6)
[2019-06-23 15:18] LABS: BUN Creatinine Ratio 22.9 (10-20); Bilirubin Direct 0.2 mg/dl (0-0.2); Calcium 9.4 mg/dl (8.5-10.1); Creatinine Clr Calc Pharmacy 62.5 ml/min; Est GFR (African American) 86.2; Est GFR (Non-African American) 74.4; Potassium 4.1 mmol/L (3.5-5.1)
[2019-06-23 15:21] LABS: Bilirubin,Total 0.5 mg/dl (0.2-1); Total Protein 7.3 gm/dl (6.4-8.2)
[2019-07-14] MEDS ORDERED: CEFAZOLIN 2000MG 2,000 MG/15 ML SYR IV SCH (06:00)
[2019-07-14] MEDS ORDERED: LR 500ML BOLUS, THEN 15ML/HR IV SCH (06:00)
[2019-07-14] MEDS ORDERED: TRANEXAMIC ACID 1,000 MG x 1 **For Topical Use TOP SCH (06:00)
[2019-07-14] MEDS ORDERED: ROPIVACAINE 0.5% HCL/PF 150 MG, BUPIVACAINE 0.5% MPF 30 ML, EPINEPHrine 0.15 MG, Ketoro... INFIL SCH (06:00)
[2019-07-14] MEDS ORDERED: LACTATED RINGER'S 1,000 ML IV SCH (06:00)
[2019-07-14] MEDS ORDERED: CeleBREX 200 MG CAP PO SCH (06:00)
[2019-07-14] MEDS ORDERED: TRANEXAMIC ACID / 0.7% NACL 1000MG/100ML BAG IV ONE (06:15)
[2019-07-14] MEDS ORDERED: BUPIVACAINE/EPINEPHRINE 0.25% 1:200,000 30 ML VIAL ONE (06:21)
[2019-07-14] MEDS ORDERED: BUPIVACAINE 0.5 % 5 MG/1 ML PF 10ML VIAL ONE (06:21)
--- NOTE | 2019-07-14 06:37 | History & Physical Bridge Note ---
Date of Service July 14, 2019 History & Physical Bridge Note I have examined the patient, reviewed the History & Physical and in the interval since the performance of the History & Physical I have noted the following changes of clinical significance: no changes noted
[2019-07-14] MEDS ORDERED: MIDAZOLAM HCL 1 MG/ML 2ML VIAL ONE ×2 (06:40→11:17)
[2019-07-14] MEDS ORDERED: fentaNYL citrate 100 MCG/2 ML VIAL ONE (06:40)
[2019-07-14] MEDS ORDERED: ONDANSETRON INJ 2 MG/ML 2 ML VIAL IV PRN ×2 (06:54→10:47)
[2019-07-14] MEDS ORDERED: fentaNYL citrate 100 MCG/2 ML VIAL IV PRN (06:54)
[2019-07-14] MEDS ORDERED: ePHEDrine sulfate 50 MG/ML AMP IV PRN (06:54)
[2019-07-14] MEDS ORDERED: ATROPINE SULFATE 0.1 MG/ML 10ML SYR IV PRN (06:54)
[2019-07-14] MEDS ORDERED: HYDROmorphone INJ 2 MG/ML SYR/VIAL IV PRN (06:54)
[2019-07-14] MEDS ORDERED: ORTHO JOINT ANESTHETIC ONE (06:58)
[2019-07-14] MEDS ORDERED: ePHEDrine sulfate 50 MG/ML SYR ONE (08:41)
[2019-07-14] MEDS ORDERED: LIDOCAINE HCL 2% 2 ML VIAL/AMP(20MG/ML) INFIL ONE (08:41)
[2019-07-14] MEDS ORDERED: ONDANSETRON INJ 2 MG/ML 2 ML VIAL ONE (08:41)
[2019-07-14] MEDS ORDERED: PROPOFOL IV EMULSION 10 MG/ML 20 ML VIAL IV ONE ×3 (08:41→09:21)
--- NOTE | 2019-07-14 10:28 | Operative Report ---
Post Operative Report Pre & Post Diagnosis Operation Date: 07/14/19 07:00 Pre-Op Diagnosis: Left Knee Osteoarthritis Post-Op Diagnosis: Left Knee Osteoarthritis I identified the patient and participated in the time-out.: Yes Procedure Operation Date: 07/14/19 07:00 Actual Procedures p Left Total Knee Arthroplasty(Left) - Itz Hassan MD Surgeon Itz Hassan MD Hospital Internship Osbaldo Rivera PA-C (No fellow avail) Estimated Blood Loss 100 Findings See Below Examined Under Anesthesia: ROM -- There was 5 degrees to 120 degrees of flexion Ligamentous examination -- revealed stable Aneesh, posterior drawer, varus and valgus stress at 0 and 30 degrees. [place] Type IV changes of medial compartment with [id number], and patella. Type II changes in the lateral compartment. Fluids 2000 cc Specimens Left knee contents Anesthesia Type General Regional Complications Lateral femoral condyle fracture Indications This is a 79-year-old male who has clinical and radiographic findings consistent with osteoarthritis of the a left knee. I recommended that a left total knee replacement be performed. The patient understands the risks of surgery, which include but not limited to: bleeding, infection, re-operation, damage to nerves and arteries, continued knee pain, knee stiffness, DVT, and . The patient understands all of these instructions and explanations, all of his questions have been satisfactorily addressed and the patient has elected to proceed. Informed consent was signed. Description of Procedure IMPLANTS: 1. Femur: Triathlon #3 left PS, with distal femoral pegs. 2. Tibia: Triathlon #4 [place]. 3. Insert: Triathlon #4 x 9 mm PS X3 poly. 4. Patella: Triathlon A32 x 10 mm X3 poly. 5. Simplex cement. 6. 4.0 mm cancellus screw x 60mm (Synthes). Procedure: The patient was taken to the Operating Room and placed in the supine position after spinal and adductor canal nerve block was administered. Toward the end of the case, for short period, the patient was placed under general anesthetic. My initials and a multidisciplinary time-out were used to identify the left leg as the correct operative limb. A tourniquet was placed high in the thigh. Prior to the incision, 2 grams of intravenous Ancef were given. The left leg was then prepped and draped in a standard sterile fashion. An Esmarch was used to exsanguinate the leg and the tourniquet was inflated to 250 mmHg. The planned mid-line 20 cm incision was created exposing the extensor mechanism. The medial parapatellar arthrotomy was made and the patella was everted. The patella was addressed first. It was prepared by reaming from 24 mm down to 14 mm. An A32 button was found to fit best. The peg holes were made in the standard fashion. The femur was addressed next and the guide hattie was placed intramedullary. The initial cutting block was placed with 3 degrees of valgus and removing 10 mm for the anterior cut. The cut was made and the 4-in-1 cutting block for a size 4 femur was placed. These cuts and the cuts to place the box were made in the standard fashion. Our attention was then drawn to the tibia cut with the external cutting guide, taking 2 mm from the medial low side. There was sufficient extension and flexion gap to fit a 9 mm spacer. A #4 Tibial baseplate fit well. A trial with a 9 mm spacer showed excellent stability in both flexion and extension, with good ligament balance. Range of motion of 0-120 degrees. The tibial baseplate was pinned and the final preparation for the keel and stem was made. All the trial components were tested again, with good stability and thumbs free tracking of the patella. All components were removed. The tourniquet was deflated. Hemostasis was obtained. 90 ml of total knee cocktail were injected into the soft tissues and periosteum. A bone plug was placed in the femur and covered with bone wax. After a 15 minute break, the limb was exsanguinated again and the tourniquet was re-inflated. All surfaces were copiously irrigated prior to placement of the components. As the femoral component was being cemented in place, there was noted fracture of the lateral condyle, that seemed to propagate from one of the pin holes to hold the femoral cutting block in place and the notch cut. The component was removed as well as the cement. A bone reduction clamp was used to reduce the condyle along with the femoral trial component. The distal femoral pegs were drilled in place the peg in the lateral femoral condyle was left to provide stability as a 40 cancellus screw was used to fix the lateral femoral condyle in place using standard lag technique. The trajectory of the screw had been checked under fluoroscopy. At this point the femoral component and Tibial baseplate were placed with cement and a 9 mm X3 poly was placed. The patellar button was placed next in the standard fashion. Again the range of motion and stability were unchanged. The extensor mechanism was closed with 1-0 and 0 Vicryl with the knee bent approximately 60 degrees in a standard fashion. The peritenon and deep fascia was closed with 2-0 Vicryl. The subcutaneous layer was closed with 3-0 Vicryl. The skin was closed with Zipline. The limb was cleaned and dried. 4x4 dressing was placed over top followed by ABDs, sterile Webril, and a foot to thigh Fernando bandage. The patient was then transferred to the Recovery Room in stable condition. The sponge and needle counts were correct. POST-OP INSTRUCTIONS: The patient will be 50% PWB. The patient will be admitted to the hospital. The patient will use the knee immobilizer when ambulating and standing until good quad control is achieved. Labs will be obtained during the stay. DVT prophylaxis will included restarting his Plavix and aspirin 81 mg BID for 6 weeks, TEDs, and mechanical foot pumps. The dressing will be changed prior to their discharge or postop day #2 and covered with a Silverlon dressing, whichever comes first. I attest to the content of the Intraoperative Record and any orders documented therein. Any exceptions are noted below.
--- NOTE | 2019-07-14 10:28 | Post Operative Brief Note ---
Immediate Post Op Note v1 Date of Surgery July 14, 2019 Pre & Post Diagnosis Operation Date: 07/14/19 07:00 Pre-Op Diagnosis: Left Knee Osteoarthritis Post-Op Diagnosis: Left Knee Osteoarthritis I identified the patient and participated in the time-out.: Yes Procedure Operation Date: 07/14/19 07:00 Actual Procedures p Left Total Knee Arthroplasty(Left) - Itz Hassan MD Surgeon Itz Hassan MD Lever Operator Osbaldo Rivera PA-C (No fellow avail) Estimated Blood Loss 100 Findings Consistent with Post-Op Diagnosis Fluids 2000 cc Specimens Left knee contents Anesthesia Type General Regional Complications Lateral femoral condyle fracture
--- NOTE | 2019-07-14 10:29 | Fluoroscopy Report ---
INTRAOPERATIVE RADIOGRAPH CLINICAL HISTORY: Left knee screw insertion. Fluoroscopy time: 2 seconds. FINDINGS: A single spot fluoroscopic view of the left knee is correlated with radiographs dated 06/23. The femoral component of a left knee arthroplasty has been placed. The knee is in a flexed pos ition. There is no evidence of fracture on this fluoroscopic view. IMPRESSION: Intraoperative image of the left knee as above. Electronically signed by: Donaldo Booth M.D. 07/14/2019 10:28 AM
[2019-07-14] MEDS ORDERED: METOCLOPRAMIDE HCL INJ 5 MG/ML 2 ML VIAL IV PRN (10:47)
[2019-07-14] MEDS ORDERED: MAGNESIUM HYDROXIDE SUSP 30 ML UDC PO PRN (10:47)
[2019-07-14] MEDS ORDERED: DiphenhydrAMINE HCL 50 MG/ML VIAL IV PRN (10:47)
[2019-07-14] MEDS ORDERED: NALOXONE HCL 0.4 MG/1 ML VIAL/CARP IV PRN (10:47)
[2019-07-14] MEDS ORDERED: HYDROmorphone INJ 0.5 MG/0.5 ML SYR IV PRN (10:47)
[2019-07-14] MEDS ORDERED: bisacodyL 10 MG SUPP PR PRN (10:47)
--- NOTE | 2019-07-14 10:51 | Operative Report ---
Post Operative Report Pre & Post Diagnosis Operation Date: 07/14/19 07:00 Pre-Op Diagnosis: Left Knee Osteoarthritis Post-Op Diagnosis: Left Knee Osteoarthritis I identified the patient and participated in the time-out.: Yes Procedure Operation Date: 07/14/19 07:00 Actual Procedures p Left Total Knee Arthroplasty(Left) - Itz Hassan MD ORIF Left lateral femoral condyle Surgeon Itz Hassan MD Line Painting Machine Operator Osbaldo Rivera PA-C (No fellow avail) Estimated Blood Loss 100 Findings Consistent with Post-Op Diagnosis Specimens bone and soft tissue Complications Intra-operative lateral femoral condyle fracture Indications See Dr Hassan operative report for complete details Description of Procedure See Dr Hassan operative report for complete details. I was rehab assistant during entire case to include prepping, draping, limb and instrument handling, wound closure, dressings. I attest to the content of the Intraoperative Record and any orders documented therein. Any exceptions are noted below.
--- NOTE | 2019-07-14 11:25 | Anesthesiology Progress Note ---
Date of Service July 14, 2019 Anesthesia Post Procedure Vital Signs Vital Signs: Temp Pulse Pulse Pulse Resp BP BP 07/14/19 11:16 81 15 07/14/19 11:15 84 15 150/90 H 07/14/19 11:11 81 13 07/14/19 11:10 85 19 144/85 H 07/14/19 11:08 36.6 C 07/14/19 11:06 83 19 07/14/19 11:05 86 19 139/75 07/14/19 11:01 84 16 07/14/19 11:00 83 14 140/76 07/14/19 10:59 84 14 07/14/19 10:58 81 13 152/77 H 07/14/19 10:55 84 15 07/14/19 10:51 87 15 07/14/19 10:50 81 16 147/75 H 07/14/19 10:46 88 20 07/14/19 10:45 82 15 160/73 H 07/14/19 10:41 89 15 07/14/19 10:40 90 22 155/93 H 07/14/19 10:38 92 H 13 07/14/19 10:37 36.1 C L 86 85 15 159/80 H 159/80 H 07/14/19 05:54 36.9 C 71 20 147/81 H Pulse Ox 07/14/19 11:16 97 07/14/19 11:15 96 07/14/19 11:11 96 07/14/19 11:10 96 07/14/19 11:08 96 07/14/19 11:06 95 07/14/19 11:05 96 07/14/19 11:01 97 07/14/19 11:00 97 07/14/19 10:59 99 07/14/19 10:58 100 07/14/19 10:55 100 07/14/19 10:51 100 07/14/19 10:50 100 07/14/19 10:46 98 07/14/19 10:45 99 07/14/19 10:41 100 07/14/19 10:40 98 07/14/19 10:38 98 07/14/19 10:37 98 07/14/19 05:54 94 Pain Intensity Left Knee: Pain Intensity: 0 Transfer of Care Handoff Completed per policy Notes Mental Status: alert / awake / arousable and participated in evaluation Patient Amnestic to Procedure: Yes Nausea / Vomiting: adequately controlled Pain: adequately controlled Airway Patency, RR, SpO2: stable & adequate BP & HR: stable & adequate Hydration State: stable & adequate Anesthetic Complications: no major complications apparent and Pt Satisfied with anesthetic care
--- NOTE | 2019-07-14 11:26 | XRay Report ---
TWO VIEWS LEFT KNEE CLINICAL HISTORY: Postoperative examination. FINDINGS: AP and crosstable lateral portable views of the left knee are compared to study dated 06/23. A left knee arthroplasty is in near anatomic alignment. There has been undersurface remodeling of the patella. A cortical lag screw transfixes the distal femoral metaphysis. No acute fracture is seen. Soft tissue edema and subcutaneous gas are expected postoperative findings. There is atheroscle rotic calcification of the popliteal artery. IMPRESSION: Expected postoperative changes status post left knee arthroplasty. No acute fracture is s een. Electronically signed by: Donaldo Booth M.D. 07/14/2019 11:24 AM
[2019-07-14] MEDS ORDERED: GLUCAGON FOR INJ 1 MG VIAL SQ PRN (12:02)
[2019-07-14] MEDS ORDERED: CARBOHYDRATES FOR HYPOGLYCEMIA PO PRN (12:02)
[2019-07-14] MEDS ORDERED: GLUCOSE 10 TABS/TUBE PO PRN (12:02)
[2019-07-14] MEDS ORDERED: DEXTROSE 50% 50 ML SYRINGE IV PRN (12:02)
[2019-07-14] MEDS ORDERED: GLUCOSE 40% GEL 15 GM TUBE PO PRN (12:02)
[2019-07-14] MEDS: SODIUM CHLORIDE 0.9% 1000ML 1,000 ML IV SCH ×2 (12:35→22:02)
[2019-07-14] MEDS: OXYCODONE HCL IR 5 MG TAB (IMMEDIATE RELEASE) PO PRN (12:35)
[2019-07-14] MEDS: ACETAMINOPHEN 500 MG TAB PO SCH ×2 (13:39→21:51)
[2019-07-14] MEDS: AMLODIPINE BESYLATE 5 MG TAB PO SCH (15:48)
[2019-07-14] MEDS: CEFAZOLIN 2000MG 2,000 MG/15 ML SYR IV SCH ×2 (15:49→22:02)
--- NOTE | 2019-07-14 17:41 | Orthopedic Progress Note ---
Date of Service July 14, 2019 Assessment & Plan (1) Osteoarthritis of left knee: POD #0 s/p Left TKA due to OA, ORIF fracture lateral condyle, doing as well as expected. Continue pain control. Resume diet. 50% PWB with walker, use immobilizer for ambulation for 48 hours or demonstrates good quad control. PT/OT DVT Prophylaxis: TEDs, Foot pumps, restart Plavix and ASA 81 mg BID for 3 weeks. Change dressing to Silverlon Prior to discharge or POD #2 whichever comes first. Appreciate medicine input for medical management. D/C Planning. Present on Admission?: Yes Subjective Feeling not too bad. Review of Systems Review of Systems: All systems reviewed & are unremarkable except as noted in HPI & below Physical Exam Physical Exam: LLE: Dressing clean, dry, intact. calf soft and non-tender. Neuro intact. Results & Data Vital Signs (Past 12 Hours) Vital Signs Temp Pulse Pulse Pulse Pulse Resp BP 07/14/19 15:40 36.4 C L 50 L 18 07/14/19 14:33 36.3 C L 49 L 14 07/14/19 13:45 36.4 C L 51 L 16 07/14/19 12:37 36.3 C L 71 16 07/14/19 11:50 36.4 C L 85 15 07/14/19 11:16 81 15 07/14/19 11:15 84 15 150/90 H 07/14/19 11:11 81 13 07/14/19 11:10 85 19 144/85 H 07/14/19 11:08 36.6 C 07/14/19 11:06 83 19 07/14/19 11:05 86 19 139/75 07/14/19 11:01 84 16 07/14/19 11:00 83 14 140/76 07/14/19 10:59 84 14 07/14/19 10:58 81 13 152/77 H 07/14/19 10:55 84 15 07/14/19 10:51 87 15 07/14/19 10:50 81 16 147/75 H 07/14/19 10:46 88 20 07/14/19 10:45 82 15 160/73 H 07/14/19 10:41 89 15 07/14/19 10:40 90 22 155/93 H 07/14/19 10:38 92 H 13 07/14/19 10:37 36.1 C L 86 85 15 159/80 H 07/14/19 05:54 36.9 C 71 20 BP Pulse Ox 07/14/19 15:40 133/86 93 07/14/19 14:33 127/66 92 07/14/19 13:45 113/67 93 07/14/19 12:37 145/84 H 97 07/14/19 11:50 153/83 H 98 07/14/19 11:16 97 07/14/19 11:15 96 07/14/19 11:11 96 07/14/19 11:10 96 07/14/19 11:08 96 07/14/19 11:06 95 07/14/19 11:05 96 07/14/19 11:01 97 07/14/19 11:00 97 07/14/19 10:59 99 07/14/19 10:58 100 07/14/19 10:55 100 07/14/19 10:51 100 07/14/19 10:50 100 07/14/19 10:46 98 07/14/19 10:45 99 07/14/19 10:41 100 07/14/19 10:40 98 07/14/19 10:38 98 07/14/19 10:37 159/80 H 98 07/14/19 05:54 147/81 H 94 Diagnostic Findings AP & Lateral left knee shows components cemented in good position and traversing screw lateral condyle. Unable to appreciate fracture.
--- NOTE | 2019-07-14 17:53 | Hospitalist Consultation ---
Date of Consultation July 14, 2019 Assessment & Plan (1) Osteoarthritis of left knee: POD #0 s/p total arthroplasty. DVT prophylaxis ordered per ortho. Thank you for this consultation. [facility] will follow with you. (2) Acid reflux: Continue omeprazole (3) Hypertension: continue amlodipine and Lasix. (4) Type II diabetes mellitus: Continue glipizide One touches AC&HS Sliding scale coverage if needed. (5) Occlusion of right internal carotid artery: Continue Plavix, aspirin and statin. 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 (7) Sinus bradycardia: This has been chronic and asymptomatic. He takes no rate altering meds. Followed by cardiology last seen 06/16. History of Present Illness Attending Physician: Itz Hassan MD History of Present Illness 79 y/o male underwent Left total knee arthroplasty today. I am asked to see the patient for medical management. He is looking well, having only minimal post-op pain. He declines having chest pain, SOB, cough, F/C, or diarrhea. Appropriate home medications have already been ordered by the primary team. Allergies Allergy/AdvReac Type Severity Reaction Status Date / Time lisinopril AdvReac Unknown COUGH Verified 07/14/19 05:50 Home Medications Home Medications Medication Instructions Recorded Confirmed Type multivitamin 2 tab PO QAM 01/19/19 07/02/19 History potassium chloride 20 mEq 20 meq PO QAM #30 tab 01/19/19 07/14/19 History tablet,extended release vitamins A,C,O-ssen-cyerbv 1 tab PO BID 01/19/19 07/14/19 History biotin 1,000 mcg chewable tablet 2 mcg DAILY tab 02/09/19 07/14/19 History meloxicam 15 mg tablet 15 mg PO QAM 02/09/19 07/14/19 History omeprazole 20 mg capsule,delayed 20 mg PO Q2D cap 02/09/19 07/14/19 History release sodium chloride 1,000 mg soluble 1,000 mg PO QPM #60 tab 02/09/19 07/14/19 History tablet Prevagen 1 tab PO QAM 06/17/19 07/14/19 History amlodipine 10 mg PO QAM 06/17/19 07/14/19 History apple cider vinegar 450 mg PO QAM 06/17/19 07/14/19 History aspirin [Adult Low Dose Aspirin] 81 mg PO QPM 06/17/19 07/14/19 History atorvastatin 40 mg PO QPM 06/17/19 07/14/19 History furosemide 20 mg PO QAM 06/17/19 07/14/19 History psyllium husk [Metamucil] 1 tbsp PO BID 06/17/19 07/14/19 History clopidogrel 75 mg tablet 75 mg PO QAM #90 tab 06/29/19 07/14/19 Rx glipizide 5 mg tablet 5 mg PO BID #180 tab 07/03/19 07/14/19 Rx Patient History Medical History Acid reflux controlled Arthritis Diabetes NIDDM Diabetic retinopathy, nonproliferative History of stroke 2016- no residual effects Hypertension Microscopic colitis hx Normocytic anemia Obesity Occlusion of right internal carotid artery Stenosis of left carotid artery s/p left CEA (2016)- on ASA/plavix Surgical History H/O carotid endarterectomy LEFT (2016) H/O hernia repair History of cardiac cath 11/05/18= NO STENTS ([facility]) History of tonsillectomy Family History Mother Cardiac disorder Kidney stones Myocardial infarction, Onset Age: 45 Hypertension Family history of diabetes mellitus Brother Kidney stones Hypertension Social History Preferred Language: Peruvian Communication Ability: Effective Visual Impairment: No Limitations Hearing Ability: Hard of Hearing Rewinder Required: No Beliefs That Will Affect Care: None marital status: Current Living Situation: Spouse current occupational status: retired Other Information That Helps Us Care for You: No Feels Safe at Home: Yes Safety Concerns: Feels Safe At This Time Smoking Status: Former smoker (stopped many years ago. ) Do You Dip or Chew Tobacco: No ; Smoking End Date: QUIT 20+ YRS AGO ; Second Hand Exposure: No ; Hx Alcohol Use: Yes Alcohol type: beer Alcohol Intake Frequency: Weekly Alcohol Intake Frequency Comment: 6-8 Hx Substance Use: No Childhood Exposure to Second-Hand Smoke: No caffeine: Yes (three cups per day. No tea or coffee.) Dental Care, Regularly: Yes Physical Activity Frequency: Does not Exercise Physical Activity Frequency Comment: LIMITED BY PHYSICAL CONDITION Seatbelt Use: always Sunscreen Use: Yes Review of Systems Review of Systems: All systems reviewed & are unremarkable except as noted in HPI & below Physical Exam Physical Exam: General- adult male, NAD Head- atraumatic Eyes- PERRL, EOMI, anicteric ENT- oropharynx clear Neck- supple, no JVD, no adenopathy, no thyromegaly. Lungs- CTA b/l no R/R/W Heart- regular rhythm; no murmur, no gallop, no rub appreciated Abdomen- normal bowel sounds, soft, nontender. 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 Skin- warm & dry, no rash. Results & Data Vital Signs (Past 12 Hours) Vital Signs Temp Pulse Pulse Pulse Pulse Resp BP 07/14/19 15:40 36.4 C L 50 L 18 07/14/19 14:33 36.3 C L 49 L 14 07/14/19 13:45 36.4 C L 51 L 16 07/14/19 12:37 36.3 C L 71 16 07/14/19 11:50 36.4 C L 85 15 07/14/19 11:16 81 15 07/14/19 11:15 84 15 150/90 H 07/14/19 11:11 81 13 07/14/19 11:10 85 19 144/85 H 07/14/19 11:08 36.6 C 07/14/19 11:06 83 19 07/14/19 11:05 86 19 139/75 07/14/19 11:01 84 16 07/14/19 11:00 83 14 140/76 07/14/19 10:59 84 14 07/14/19 10:58 81 13 152/77 H 07/14/19 10:55 84 15 07/14/19 10:51 87 15 07/14/19 10:50 81 16 147/75 H 07/14/19 10:46 88 20 07/14/19 10:45 82 15 160/73 H 07/14/19 10:41 89 15 07/14/19 10:40 90 22 155/93 H 07/14/19 10:38 92 H 13 07/14/19 10:37 36.1 C L 86 85 15 159/80 H 07/14/19 05:54 36.9 C 71 20 BP Pulse Ox 07/14/19 15:40 133/86 93 07/14/19 14:33 127/66 92 07/14/19 13:45 113/67 93 07/14/19 12:37 145/84 H 97 07/14/19 11:50 153/83 H 98 07/14/19 11:16 97 07/14/19 11:15 96 07/14/19 11:11 96 07/14/19 11:10 96 07/14/19 11:08 96 07/14/19 11:06 95 07/14/19 11:05 96 07/14/19 11:01 97 07/14/19 11:00 97 07/14/19 10:59 99 07/14/19 10:58 100 07/14/19 10:55 100 07/14/19 10:51 100 07/14/19 10:50 100 07/14/19 10:46 98 07/14/19 10:45 99 07/14/19 10:41 100 07/14/19 10:40 98 07/14/19 10:38 98 07/14/19 10:37 159/80 H 98 07/14/19 05:54 147/81 H 94 Laboratory Results Laboratory Results WBC 6.99 K/uL (4.8-10.8) 06/23/19 12:35 RBC 4.18 M/uL (4.7-6.1) L 06/23/19 12:35 Hgb 13.4 g/dL (14.0-18.0) L 06/23/19 12:35 Hct 40.1 % (42-52) L 06/23/19 12:35 MCV 95.9 fL (80-100) 06/23/19 12:35 MCH 32.1 pg (25-34) 06/23/19 12:35 MCHC 33.4 g/dL (32-36) 06/23/19 12:35 RDW Std Deviation 43.9 fL (36.4-46.3) 06/23/19 12:35 RDW Coeff of Filiberto 12.6 % (11.5-14.5) 06/23/19 12:35 Plt Count 223 K/uL (130-400) 06/23/19 12:35 MPV 10.7 fL (7.4-10.4) H 06/23/19 12:35 Immature Gran % (Auto) 0.3 % 06/23/19 12:35 Neut % (Auto) 59.6 % 06/23/19 12:35 Lymph % (Auto) 24.7 % 06/23/19 12:35 Esmeralda % (Auto) 9.0 % 06/23/19 12:35 Eos % (Auto) 5.7 % 06/23/19 12:35 Baso % (Auto) 0.7 % 06/23/19 12:35 Immature Gran # (Auto) 0.02 K/uL (0.00-0.02) 06/23/19 12:35 Neut # (Auto) 4.16 K/uL (1.4-6.5) 06/23/19 12:35 Lymph # (Auto) 1.73 K/uL (1.2-3.4) 06/23/19 12:35 Esmeralda # (Auto) 0.63 K/uL (0.11-0.59) H 06/23/19 12:35 Eos # (Auto) 0.40 K/uL (0-0.5) 06/23/19 12:35 Baso # (Auto) 0.05 K/uL (0-0.2) 06/23/19 12:35 PT 10.3 Seconds (9.0-12.0) 06/23/19 12:35 INR 1.0 (0.9-1.1) 06/23/19 12:35 APTT 26.9 Seconds (21.0-31.0) 06/23/19 12:35 PTT Ratio 1.0 06/23/19 12:35 Sodium 138 mmol/L (136-145) 06/23/19 12:35 Potassium 4.1 mmol/L (3.5-5.1) 06/23/19 12:35 Chloride 104 mmol/L (98-107) 06/23/19 12:35 Carbon Dioxide 26 mmol/L (21-32) 06/23/19 12:35 Anion Gap 8.0 (3-11) 06/23/19 12:35 BUN 22 mg/dl (7-18) H 06/23/19 12:35 Creatinine 0.96 mg/dl (0.6-1.4) 06/23/19 12:35 Est Cr Clr Drug Dosing 62.5 ml/min 06/23/19 12:35 Est GFR ( Amer) 86.2 06/23/19 12:35 Est GFR (Non-Af Amer) 74.4 06/23/19 12:35 BUN/Creatinine Ratio 22.9 (10-20) H 06/23/19 12:35 Glucose 104 mg/dl (70-99) H 06/23/19 12:35 POC Glucose 182 (70-99) H 07/14/19 17:32 Estimat Average Glucose 143 mg/dl 06/23/19 12:35 Hemoglobin A1c 6.6 % (4.5-5.6) H 06/23/19 12:35 Calcium 9.4 mg/dl (8.5-10.1) 06/23/19 12:35 Total Bilirubin 0.5 mg/dl (0.2-1) 06/23/19 12:35 Direct Bilirubin 0.2 mg/dl (0-0.2) 06/23/19 12:35 AST 23 U/L (15-37) 06/23/19 12:35 ALT 29 U/L (12-78) 06/23/19 12:35 Alkaline Phosphatase 63 U/L (45-117) 06/23/19 12:35 Total Protein 7.3 gm/dl (6.4-8.2) 06/23/19 12:35 Albumin 4.0 gm/dl (3.4-5.0) 06/23/19 12:35 Blood Type O Negative 06/23/19 12:35 Antibody Screen NEGATIVE 06/23/19 12:35 PG Care Time/CCT Total # of Minutes Spent Total Time Spent: 50 Total Time Spent with Patient: Total time spent is greater than 50% in coordination of care (as documented) at patient's floor/unit and/or counseling patient:
[2019-07-14] MEDS: ASCORBIC ACID 500 MG TAB PO SCH (18:15)
[2019-07-14] MEDS: FERROUS GLUCONATE 324 MG TAB PO SCH (18:15)
[2019-07-14] MEDS: INSULIN ASPART 100 UNITS/ML 3 ML PEN SC SCH ×2 (18:17→21:54)
[2019-07-14] MEDS: glipiZIDE 5 MG TAB PO SCH (18:46)
[2019-07-14] MEDS ORDERED: VITAMINS A C E ZINC COPPER PO SCH (21:00)
[2019-07-14] MEDS ORDERED: ATORVASTATIN 40 MG TAB PO SCH (21:00)
[2019-07-14] MEDS ORDERED: ASPIRIN 81 MG ECTAB PO SCH ×2 (21:00)
[2019-07-14] MEDS ORDERED: SENNA 8.6 MG TAB PO SCH (21:00)
[2019-07-14] MEDS ORDERED: SODIUM CHLORIDE 1 GM TABLET PO SCH (21:00)
[2019-07-14] MEDS: PSYLLIUM 58.6% POWDER PACKET PO SCH (21:49)
[2019-07-14] MEDS: ASPIRIN 81 MG ECTAB PO SCH (21:50)
[2019-07-14] MEDS: DOCUSATE SODIUM 100 MG CAP PO SCH (21:50)
[2019-07-15 06:09] LABS: Hematocrit (blood only) 29.8 % (42-52); Mean Corpuscular Hemoglobin 31.9 pg (25-34); Mean Corpuscular Hgb Conc 33.6 g/dL (32-36); Mean Corpuscular Volume 95.2 fL (80-100); Mean Platelet Volume 9.7 fL (7.4-10.4); Platelet Count 169 K/uL (130-400); RDW Coefficient of Variation 12.2 % (11.5-14.5); RDW Standard Deviation 42.2 fL (36.4-46.3); Red Blood Count 3.13 M/uL (4.7-6.1); White Blood Count 10.65 K/uL (4.8-10.8)
[2019-07-15] MEDS: ACETAMINOPHEN 500 MG TAB PO SCH ×2 (06:15→13:26)
[2019-07-15 06:50] LABS: BUN Creatinine Ratio 17.8 (10-20); Creatinine Clr Calc Pharmacy 63.1 ml/min; Est GFR (African American) 87.3; Est GFR (Non-African American) 75.3; Potassium 4.3 mmol/L (3.5-5.1)
[2019-07-15] MEDS ORDERED: FUROSEMIDE 20 MG TAB PO SCH (09:00)
[2019-07-15] MEDS ORDERED: BIOTIN PO SCH (09:00)
[2019-07-15] MEDS ORDERED: CLOPIDOGREL BISULFATE 75 MG TAB PO SCH (09:00)
[2019-07-15] MEDS ORDERED: MULTIVITAMIN TAB PO SCH (09:00)
[2019-07-15] MEDS ORDERED: POTASSIUM CHLORIDE 20 MEQ TABCR PO SCH (09:00)
[2019-07-15] MEDS ORDERED: NON-FORMULARY MEDICATION (Prevagen 1 TAB) PO SCH (09:00)
[2019-07-15] MEDS ORDERED: MULTIVITAMIN PO SCH (09:00)
--- NOTE | 2019-07-15 09:02 | Orthopedic Progress Note ---
Date of Service July 15, 2019 Assessment & Plan (1) Osteoarthritis of left knee: POD #1 s/p Left TKA due to OA, ORIF fracture lateral condyle, doing as well as expected. Continue pain control. Resume diet. 50% PWB with walker, use immobilizer for ambulation for 48 hours or demonstrates good quad control. PT/OT DVT Prophylaxis: TEDs, Foot pumps, restart Plavix and ASA 81 mg BID for 3 weeks. Change dressing to Silverlon Prior to discharge or POD #2 whichever comes first. Appreciate medicine input for medical management. D/C Planning. Will re-eval in pm to determine when appropriate for d/c. Subjective Feeling well. Wants to know when, "when can I get out of here?" Review of Systems Review of Systems: All systems reviewed & are unremarkable except as noted in HPI & below Physical Exam Physical Exam: LLE: dressing clean, dry, intact. Neurovascularly intact. Calf soft and non-tender. Results & Data Vital Signs (Past 12 Hours) Vital Signs Temp Pulse Pulse Resp BP Pulse Ox 07/15/19 07:09 36.6 C 79 16 144/67 H 95 18/ 02:54 36.5 C 81 14 127/67 94 17/19 22:57 36.5 C 76 14 120/67 96 Laboratory Results 07/15/19 07/15/19 07/15/19 Range/Units 07:56 05:53 05:53 WBC 10.65 (4.8-10.8) K/uL RBC 3.13 L (4.7-6.1) M/uL Hgb 10.0 L (14.0-18.0) g/dL Hct 29.8 L (42-52) % MCV 95.2 (80-100) fL MCH 31.9 (25-34) pg MCHC 33.6 (32-36) g/dL RDW Std Deviation 42.2 (36.4-46.3) fL RDW Coeff of Filiberto 12.2 (11.5-14.5) % Plt Count 169 (130-400) K/uL MPV 9.7 (7.4-10.4) fL Sodium 137 (136-145) mmol/L Potassium 4.3 (3.5-5.1) mmol/L Chloride 106 (98-107) mmol/L Carbon Dioxide 26 (21-32) mmol/L Anion Gap 5.0 (3-11) BUN 17 (7-18) mg/dl Creatinine 0.95 (0.6-1.4) mg/dl Est Cr Clr Drug Dosing 63.1 ml/min Est GFR ( Amer) 87.3 Est GFR (Non-Af Amer) 75.3 BUN/Creatinine Ratio 17.8 (10-20) Glucose 191 H (70-99) mg/dl POC Glucose 177 H (70-99) Calcium 8.0 L (8.5-10.1) mg/dl 07/14/19 07/14/19 07/14/19 Range/Units 21:04 17:32 12:46 WBC (4.8-10.8) K/uL RBC (4.7-6.1) M/uL Hgb (14.0-18.0) g/dL Hct (42-52) % MCV (80-100) fL MCH (25-34) pg MCHC (32-36) g/dL RDW Std Deviation (36.4-46.3) fL RDW Coeff of Filiberto (11.5-14.5) % Plt Count (130-400) K/uL MPV (7.4-10.4) fL Sodium (136-145) mmol/L Potassium (3.5-5.1) mmol/L Chloride (98-107) mmol/L Carbon Dioxide (21-32) mmol/L Anion Gap (3-11) BUN (7-18) mg/dl Creatinine (0.6-1.4) mg/dl Est Cr Clr Drug Dosing ml/min Est GFR ( Amer) Est GFR (Non-Af Amer) BUN/Creatinine Ratio (10-20) Glucose (70-99) mg/dl POC Glucose 199 H 182 H 163 H (70-99) Calcium (8.5-10.1) mg/dl 07/14/19 Range/Units 11:01 WBC (4.8-10.8) K/uL RBC (4.7-6.1) M/uL Hgb (14.0-18.0) g/dL Hct (42-52) % MCV (80-100) fL MCH (25-34) pg MCHC (32-36) g/dL RDW Std Deviation (36.4-46.3) fL RDW Coeff of Filiberto (11.5-14.5) % Plt Count (130-400) K/uL MPV (7.4-10.4) fL Sodium (136-145) mmol/L Potassium (3.5-5.1) mmol/L Chloride (98-107) mmol/L Carbon Dioxide (21-32) mmol/L Anion Gap (3-11) BUN (7-18) mg/dl Creatinine (0.6-1.4) mg/dl Est Cr Clr Drug Dosing ml/min Est GFR ( Amer) Est GFR (Non-Af Amer) BUN/Creatinine Ratio (10-20) Glucose (70-99) mg/dl POC Glucose 142 H (70-99) Calcium (8.5-10.1) mg/dl
[2019-07-15] MEDS: ASPIRIN 81 MG ECTAB PO SCH (09:11)
[2019-07-15] MEDS: FERROUS GLUCONATE 324 MG TAB PO SCH (09:12)
[2019-07-15] MEDS: glipiZIDE 5 MG TAB PO SCH (09:12)
[2019-07-15] MEDS: AMLODIPINE BESYLATE 5 MG TAB PO SCH (09:12)
[2019-07-15] MEDS: ASCORBIC ACID 500 MG TAB PO SCH (09:12)
[2019-07-15] MEDS: DOCUSATE SODIUM 100 MG CAP PO SCH (09:12)
[2019-07-15] MEDS: PSYLLIUM 58.6% POWDER PACKET PO SCH (09:13)
[2019-07-15] MEDS: INSULIN ASPART 100 UNITS/ML 3 ML PEN SC SCH ×2 (09:17→13:27)
[2019-07-15] MEDS: OXYCODONE HCL IR 5 MG TAB (IMMEDIATE RELEASE) PO PRN (09:28)
--- NOTE | 2019-07-15 14:13 | Hospitalist Progress Note ---
Date of Service July 15, 2019 Assessment & Plan (1) Osteoarthritis of left knee: - S/p left total knee on 07/14, POD#1. - Pain management per primary team. - PT/OT for discharge planning. (2) Acute blood loss anemia: - Hgb trended down to 10 post op, likely partially dilutional and related to blood loss. - Continue to trend if pt. remains in the hospital overnight. (3) Acid reflux: - Continue PPI as prescribed. (4) Hypertension: - Continue home Amlodipine and Lasix - renal function is stable. (5) Type II diabetes mellitus: - Continue home Glipizide as prescribed. - SSI coverage with gluc checks ac/hs. - Does not have recently documented A1C -- will add to AM labs, f/u level as outpatient. (6) Occlusion of right internal carotid artery: - Continue Plavix, statin and ASA. 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 - Continue Plavix, ASA and statin as prescribed. (8) Sinus bradycardia: - Chronic, asymptomatic. - Evaluated by cardiology in the past. Dispo: Pt. is medically stable for discharge, will sign off. Subjective Pt. is doing well overall. Has knee pain, well controlled. Is passing gas, no BM yet per bedside nurse. Review of Systems Review of Systems: All systems reviewed & are unremarkable except as noted in HPI & below Constitutional: no fatigue and no weakness Gastrointestinal: + constipation Genitourinary: no difficulty urinating Musculoskeletal: + joint pain Physical Exam Physical Exam: General: Resting comfortably HEENT: NC/AT; PERRLA with EOMI; [place] conjunctiva, MMM. No erythema of posterior pharynx Neck: Supple and nontender Cardiac: RRR Lungs: CTA bilaterally Abdomen: Bowel normoactive X 4; Nontender to palpation Extremities: Warm. Mild edema in LLE, dressing in place. Neuro: No focal weakness Skin: No rash Results & Data Vital Signs (Past 12 Hours) Vital Signs Temp Pulse Pulse Resp BP Pulse Ox 07/15/19 07:09 36.6 C 79 16 144/67 H 95 07/15/19 02:54 36.5 C 81 14 127/67 94 Laboratory Results 07/15/19 07/15/19 07/15/19 Range/Units 11:51 07:56 05:53 WBC (4.8-10.8) K/uL RBC (4.7-6.1) M/uL Hgb (14.0-18.0) g/dL Hct (42-52) % MCV (80-100) fL MCH (25-34) pg MCHC (32-36) g/dL RDW Std Deviation (36.4-46.3) fL RDW Coeff of Filiberto (11.5-14.5) % Plt Count (130-400) K/uL MPV (7.4-10.4) fL Sodium 137 (136-145) mmol/L Potassium 4.3 (3.5-5.1) mmol/L Chloride 106 (98-107) mmol/L Carbon Dioxide 26 (21-32) mmol/L Anion Gap 5.0 (3-11) BUN 17 (7-18) mg/dl Creatinine 0.95 (0.6-1.4) mg/dl Est Cr Clr Drug Dosing 63.1 ml/min Est GFR ( Amer) 87.3 Est GFR (Non-Af Amer) 75.3 BUN/Creatinine Ratio 17.8 (10-20) Glucose 191 H (70-99) mg/dl POC Glucose 156 H 177 H (70-99) Calcium 8.0 L (8.5-10.1) mg/dl 07/15/19 07/14/19 07/14/19 Range/Units 05:53 21:04 17:32 WBC 10.65 (4.8-10.8) K/uL RBC 3.13 L (4.7-6.1) M/uL Hgb 10.0 L (14.0-18.0) g/dL Hct 29.8 L (42-52) % MCV 95.2 (80-100) fL MCH 31.9 (25-34) pg MCHC 33.6 (32-36) g/dL RDW Std Deviation 42.2 (36.4-46.3) fL RDW Coeff of Filiberto 12.2 (11.5-14.5) % Plt Count 169 (130-400) K/uL MPV 9.7 (7.4-10.4) fL Sodium (136-145) mmol/L Potassium (3.5-5.1) mmol/L Chloride (98-107) mmol/L Carbon Dioxide (21-32) mmol/L Anion Gap (3-11) BUN (7-18) mg/dl Creatinine (0.6-1.4) mg/dl Est Cr Clr Drug Dosing ml/min Est GFR ( Amer) Est GFR (Non-Af Amer) BUN/Creatinine Ratio (10-20) Glucose (70-99) mg/dl POC Glucose 199 H 182 H (70-99) Calcium (8.5-10.1) mg/dl PG Care Time/CCT Total # of Minutes Spent Total Time Spent with Patient: Total time spent is greater than 50% in coordination of care (as documented) at patient's floor/unit and/or counseling patient:
[2019-07-16 05:42] LABS: Estimated Average Glucose 143 mg/dl; Hemoglobin A1C 6.6 % (4.5-5.6)
[2019-07-16] MEDS ORDERED: PANTOprazole 40 MG TAB PO SCH (09:00)
--- NOTE | 2019-07-16 20:24 | Discharge Summary ---
ADMITTING DIAGNOSIS: Left knee osteoarthritis. DISCHARGE DIAGNOSIS: Left femoral condyle fracture and Left knee osteoarthritis CONDITION ON DISCHARGE: Stable. PROCEDURES PERFORMED: Left total knee arthroplasty, open reduction and internal fixation of left femoral condyle fracture performed by Dr. Hassan on 07/14/2019. CONSULTATIONS: Medicine and Anesthesia. HOSPITAL COURSE: The patient is an 79-year-old male who was admitted to [facility] status post left total knee arthroplasty on 07/14/2019. The patient received Ancef perioperatively and for 24 hours postop. Anesthesia included a spinal as well as a femoral nerve block. The patient tolerated the procedure. He was admitted to the floor without incident. The patient on postop day zero was tolerating p.o. pain medication as well as a p.o. diet, able to void. Overall, pain controlled. DVT prophylaxis consisted of foot pumps, ADELINE hose, aspirin 81 mg twice a day and restarting his Plavix. Postop day zero, blood work was ordered and within normal limits. He was also seen and evaluated by the hospitalist for medical management. The patient received in house physical therapy. On postop day 1 early afternoon, the patient felt ready to be discharged home with home health physical therapy already set up by the delinquency prevention social worker. The patient's dressings were changed to a Silverlon waterproof dressing. DISCHARGE INSTRUCTIONS AND MEDICATIONS: The patient was discharged on postop day 1 in the afternoon in the care of his to home. Diet is regular. Activity is partial weightbearing to the left lower extremity with a walker. The patient can stop using the knee immobilizer in 24 hours, which would be a total of 48 hours postop with ambulation. Otherwise, he will continue with his physical therapy exercises. The patient is aware we will reassess his weightbearing status at his 2-week followup appointment. The patient's dressing is waterproof. It will remain on until he sees us back as well. For DVT prophylaxis, the patient will continue with the ADELINE hose until he is seen in the office. He will continue with his Plavix, which is his regular dose. He will continue aspirin 81 mg twice a day. This will be for 3 weeks and then he can back down to 81 mg once a day at 3 weeks out, which is his regular dose. New medications also include oxycodone as needed for severe pain, Tylenol for [id number] pain, vitamin C and iron for 2 weeks. These prescriptions were e-prescribed to his pharmacy. The patient is scheduled to follow up in our office on 07/27/2019 at 1:00 p.m. He was advised to call our office or go to the Emergency Room with any concerns including redness, swelling, drainage, fever, signs or symptoms of infection or uncontrollable pain. He will otherwise call our office at [phone] if he has any further questions. ROSARIO
== END 2019-07-15 15:02 | disposition home health service (06) | DRG 470 ==
LOC: ASU 05:06 → SUATTDRO 10:47 → 3E 10:47